=== PATIENT | female | born 1935 | race Caucasian/White ===

== ENCOUNTER 2017-03-29 15:13 | Outpatient (CLI) | payer MEDICARE, OTHER | END 2017-03-29 15:14 | disposition EMS.NT | LOC: EMS 15:13 | PROVIDERS: ATTEND Surgery | DX: S60.021A Contusion of right index finger without damage to nail, initial encounter (principal); S60.031A Contusion of right middle finger without damage to nail, initial encounter; W00.0XXA Fall on same level due to ice and snow, initial encounter; Y93.01 Activity, walking, marching and hiking; Y92.007 Garden or yard of unspecified non-institutional (private) residence as the place of occurrence of the external cause ==

== ENCOUNTER 2017-05-09 13:26 | Outpatient (CLI) | payer MEDICARE, OTHER ==
[2017-05-09 13:40] LABS: BASOPHILS % (AUTO) 0.5 %; EOSINOPHILS # (AUTO) 0.1 10^3/uL (0.0-0.7); EOSINOPHILS % (AUTO) 1.5 %; HCT - HEMATOCRIT 37.1 % (37.0-47.0); HGB - HEMOGLOBIN 12.6 g/dL (12.0-16.0); LYMPHOCYTES # (AUTO) 1.5 10^3/uL (1.5-3.5); LYMPHOCYTES % (AUTO) 19.6 %; MEAN CORPUSCULAR HEMOGLOBIN 29.5 pg (27.0-31.0); MEAN CORPUSCULAR HGB CONC 33.8 g/dL (32.0-36.0); MEAN CORPUSCULAR VOLUME 87.2 fL (81.0-99.0); MEAN PLATELET VOLUME 7.6 fL (7.9-10.8); MONOCYTES # (AUTO) 0.6 10^3/uL (0.0-1.0); MONOCYTES % (AUTO) 8.2 %; NEUTROPHILS # (AUTO) 5.5 10^3/uL (1.5-6.6); NEUTROPHILS % (AUTO) 70.2 %; RED BLOOD COUNT 4.25 10^6/uL (4.20-5.40); RED CELL DISTRIBUTION WIDTH 13.3 % (12.0-15.0); UNCORRECTED WHITE BLOOD COUNT 7.8 x10^3/uL; WHITE BLOOD COUNT 7.8 x10^3/uL (4.8-10.8)
[2017-05-09 13:54] LABS: BILIRUBIN,TOTAL 0.7 mg/dL (0.2-1.0); BUN - BLOOD UREA NITROGEN 9 mg/dL (6-20); CALCIUM 9.5 mg/dL (8.5-10.3); CARBON DIOXIDE - CO2 25 mmol/L (21-32); CHLORIDE 100 mmol/L (101-111); CREATININE 0.5 mg/dL (0.4-1.0); GFR - MDRD 118 (>89); GLUCOSE 111 mg/dL (70-100); POTASSIUM 3.7 mmol/L (3.5-5.0); SODIUM 135 mmol/L (135-145); TOTAL PROTEIN 7.2 g/dL (6.7-8.2)
[2017-05-09 13:54] LABS: BILIRUBIN,URINE NEGATIVE (NEGATIVE); PH,URINE 7.5 PH (5.0-7.5)
[2017-05-09] MEDS ORDERED: IOPAMIDOL-300 100 ML VIAL IVP ONE (18:35)
[2017-05-09] MEDS ORDERED: IOPAMIDOL-300 50 ML VIAL PO ONE (18:35)
--- NOTE | 2017-05-09 19:45 | CT Preliminary Report ---
Exam: CT Abdomen/Pelvis W/ IMPRESSION: 1. Slight interval increase in size of now 3.9 x 6.1 x 3.9 cm left renal neoplasm. No renal vein inva ken or regional lymphadenopathy. 2. Mild sigmoid colon diverticulitis. [facility] SITE ID: [id number]
--- NOTE | 2017-05-09 19:48 | CT Report ---
EXAM: CT ABDOMEN AND PELVIS EXAM DATE: 05/09/2017 06:27 PM. CLINICAL HISTORY: ABDOMIANL PAIN, RENAL CELL CANCER, ADENOCARCINOMA. COMPARISONS: None. TECHNIQUE: Routine helical CT imaging was performed through the abdomen and pelvis. IV contrast: 100 mL Isovue-300. Enteric contrast: No. Reconstructions: Coronal and sagittal. In accordance with CT protocol optimization, one or more of the following dose reduction techniques w ere utilized for this exam: automated exposure control, adjustment of mA and/or KV based on patient s ize, or use of iterative reconstructive technique. FINDINGS: Lung Bases: No significant findings at the lung bases. The heart is enlarged. Liver: No focal liver lesions. Gallbladder/Bile Ducts: The gallbladder has been removed. There is mild diffuse biliary dilatation wh ich is likely age and cholecystectomy related. Spleen: Borderline enlarged measuring 13 cm longitudinally. No focal splenic lesions. Pancreas: Calcification seen in the uncinate process likely sequela of previous pancreatitis. No evid ence of pancreatic mass or acute pancreatitis. Adrenal Glands: Normal. Kidneys: There is a 3.9 x 6.1 x 3.9 cm left renal mass containing internal septations and intermediat e density. This previously measured 6.2 x 3.5 x 3.6 cm. No renal vein invasion. No retroperitoneal ly mphadenopathy. The right kidney remains normal. Peritoneal Cavity/Bowel: There is eccentric mural thickening centered around a sigmoid colon divertic ulum. Pericolonic inflammatory stranding seen with no free air or fluid collections. Status post righ t hemicolectomy. There is no small bowel obstruction. Pelvic Organs: The uterus has been removed. No adnexal mass. The urinary bladder is unremarkable. Vasculature: No aneurysms or other significant abnormality. Bones: Thoracolumbar scoliosis and diffuse disk related degenerative changes. Other: None. IMPRESSION: 1. Slight interval increase in size of now 3.9 x 6.1 x 3.9 cm left renal neoplasm. No renal vein inva ken or regional lymphadenopathy. 2. Mild sigmoid colon diverticulitis. [facility] Referring Provider Line: [phone] SITE ID: [id number]
== END 2017-05-09 13:27 | disposition home or self-care (01) ==
LOC: LAB 13:26
PROVIDERS: ATTEND Family Medicine
DX: R10.9 Unspecified abdominal pain (principal); C64.9 Malignant neoplasm of unspecified kidney, except renal pelvis; C18.9 Malignant neoplasm of colon, unspecified
CPT/HCPCS: 36415; 74177; 80053; 81001; 85025; Q9967

== ENCOUNTER 2017-06-16 08:00 | Outpatient (CLI) | payer MEDICARE, OTHER | END 2017-06-16 08:01 | disposition home or self-care (01) | LOC: LAB.WCP 08:00 | PROVIDERS: ATTEND Family Medicine | DX: L98.9 Disorder of the skin and subcutaneous tissue, unspecified (principal) | CPT/HCPCS: 87070; 87205 ==

== ENCOUNTER 2017-06-17 11:23 | Emergency (ER) | payer MEDICARE, OTHER ==
--- NOTE | 2017-06-17 14:05 | ED Physician Documentation ---
PD HPI SKIN - Stated complaint Stated Complaint: FEMALE - Chief complaint Chief Complaint: Wound - History obtained from History obtained from: Patient - History of Present Illness Timing - onset: How many days ago (about a week of increasing redness and tenderness left buttock. Family has been cleaning it and using ointment. Patient without fever nor vomiting, general illness. But is having increased general weakness over baseline.) Timing - duration: Days Timing - details: Gradual onset Location: Other (left gluteal area) Quality / character: Painful, Discolored, Swelling, Other ( says there was some red blood with wiping the past few days.). No: Draining Associated symptoms: No: Fever, Myalgias, N/V/D Recently seen: Clinic (seen in clinic few days ago and treated with topical suggestions, then bigger redness and seen yesterday, with Rx of Keflex. Patient has been on it only less than a day.) Review of Systems Constitutional: denies: Fever, Chills GI: denies: Nausea, Vomiting, Diarrhea (but has had soft stools, once daily, without diarrhea per se. Irritated around rectum and red blood spots with wiping , none noted in stool itself.) PD PAST MEDICAL HISTORY - Past Medical History Cardiovascular: Hypertension Respiratory: None Neuro: None, CVA Endocrine/Autoimmune: None GI: 21 : Incontinence HEENT: None Psych: None Musculoskeletal: Scoliosis Derm: None, Other - Past Surgical History Past Surgical History: Yes General: Cholecystectomy, Appendectomy, Bowel surgery - Present Medications Home Medications: Ambulatory Orders Medication Instructions Recorded Confirmed Ascorbic Acid [Vitamin C] 60 mg PO DAILY 02/04/13 01/25/17 Atenolol 25 mg PO BID 02/04/13 01/25/17 Calcium Carb/Vitamin D3/Vit K1 1 each PO DAILY 02/04/13 01/25/17 [Calcium + Vit D & K Chew Tab] Simvastatin [Zocor] 40 mg PO DAILY 03/02/13 01/25/17 Clopidogrel [Plavix] 75 mg PO DAILY 01/15/14 01/25/17 Felodipine [Felodipine ER] 5 mg PO DAILY 01/15/14 01/25/17 Ferrous Sulfate [Iron] 325 mg PO DAILY 01/15/14 01/25/17 Glucosamine Sulfate 1,000 mg PO BID 01/15/14 01/25/17 Losartan [Cozaar] 100 mg PO DAILY 01/15/14 01/25/17 Multivitamin [Multivitamins] 1 cap PO DAILY 01/15/14 01/25/17 Cephalexin [Keflex] 500 mg PO 06/17/17 Mupirocin 1 applic TP TID #15 oint...g. 06/17/17 Ondansetron Odt [Zofran] 4 mg TL Q6H PRN #15 tablet 06/17/17 Sulfamethox/Trimeth 800/160 1 each PO BID #14 tablet 06/17/17 [Bactrim Ds 800/160] - Allergies Allergies/Adverse Reactions: Allergies Allergy/AdvReac Type Severity Reaction Status Date / Time levofloxacin [From Levaquin] Allergy unknown Verified 06/17/17 11:32 metoprolol tartrate * Allergy unknown Verified 06/17/17 11:32 [From Lopressor] benzonatate AdvReac Unknown Rash Verified 06/17/17 11:32 - Social History Does the pt smoke?: No Smoking Status: Never smoker Does the pt drink ETOH?: No Does the pt have substance abuse?: No - Immunizations Immunizations are current?: Yes PD ED PE NORMAL - Vitals Vital signs reviewed: Yes - General General: Alert and oriented X 3, No acute distress, Well developed/nourished, Other (getting around with walker ) - Cardiac Cardiac: RRR, No murmur - Respiratory Respiratory: Clear bilaterally - Abdomen Abdomen: Normal bowel sounds, Soft, Non tender - Rectal Rectal: Other (redness with irritation around rectum without hemorrhoids. Left gluteal area with firmness of tissue, redness and tenderness without fluctuance c/w cellulitis. SUperficial breakdown of skin at center of it. ) - Extremities Extremities: No tenderness to palpate, Normal ROM s pain, No edema, No calf tenderness / cord - Neuro Neuro: No motor deficit, No sensory deficit, Normal speech Results - Vitals Vitals: Vital Signs - 24 hr 06/17/17 06/17/17 06/17/17 11:29 14:54 15:36 Temperature 36.4 C L 36.8 C Heart Rate 78 70 73 Respiratory 17 16 18 Rate Blood Pressure 118/71 108/59 L 109/57 L O2 Saturation 96 97 100 Oxygen O2 Source Room air PD MEDICAL DECISION MAKING - ED course Complexity details: considered differential (bedside U/S showed cellulitis with inflammation but no abscess. No noted air in tissue. She is feeling weaker, per , but they feel they can still take care of her. She does not seem septic. I talked with them about OBS/hospital versus home due to the effect on her (weakness), and they opted for home right now. To return if fevers, vomiting , seems generally ill, etc. ), d/w patient, d/w family Departure - Departure Disposition: Home, Self Care Clinical Impression: Cellulitis of buttock, left Condition: Stable Record reviewed to determine appropriate education?: Yes Instructions: ED Infec Skin Cellulitis Follow-Up: Ronn Partida MD [Primary Care Provider] - Prescriptions: Sulfamethox/Trimeth 800/160 [Bactrim Ds 800/160] 1 each PO BID #14 tablet Mupirocin 1 applic TP TID #15 oint...g. Ondansetron Odt [Zofran] 4 mg TL Q6H PRN #15 tablet PRN Reason: Nausea / Vomiting Comments: There is no obvious abscess continue draining on ultrasound. There is inflammation in the area which along with the redness would denote to skin infection. I would use the cephalexin previously prescribed and add Bactrim twice daily. Cleanse the wound area twice daily with soap and water and apply antibiotic ointment mupirocin and then can cover with the skin protection such as a and D ointment. Tylenol if needed for pain. Ondansetron for nausea. Drink lots of fluids. Follow-up with your primary care in 3-4 days for recheck. Return sooner if feeling worse. Discharge Date/Time: 06/17/17 15:47
[2017-06-17] MEDS ORDERED: MUPIROCIN 2% OINT 1 GM TOP STA (15:23)
[2017-06-17] MEDS ORDERED: ONDANSETRON ODT 4 MG TABLET TL STA (15:23)
[2017-06-17] MEDS ORDERED: SULFAMETH/TRIMETH DS 800/160 MG TABLET PO STA (15:23)
[2017-06-17] MEDS ORDERED: ACETAMINOPHEN 325 MG TABLET PO STA (15:25)
[2017-06-17] MEDS ORDERED: MUPIROCIN 2% OINT 1 GM ONE (15:34)
[2017-06-17] MEDS ORDERED: ACETAMINOPHEN 325 MG TABLET PO ONE (15:34)
[2017-06-17] MEDS ORDERED: ONDANSETRON ODT 4 MG TABLET ONE (15:34)
[2017-06-17] MEDS ORDERED: SULFAMETH/TRIMETH DS 800/160 MG TABLET PO ONE (15:34)
[2017-06-17 15:39] VITALS: BP 109/57
== END 2017-06-17 15:47 | disposition home or self-care (01) ==
LOC: ED 11:23
DX: L03.317 Cellulitis of buttock (principal); I10 Essential (primary) hypertension; Z86.73 Personal history of transient ischemic attack (TIA), and cerebral infarction without residual deficits
CPT/HCPCS: 99283; 99284; A9270; Q0162

== ENCOUNTER 2018-01-16 09:30 | Outpatient (CLI) | payer MEDICARE, OTHER ==
[2018-01-16 13:27] LABS: CHOL/HDL RATIO 2.6 (<4.4); CHOLESTEROL 113 mg/dL; HDL CHOLESTEROL 43 mg/dL; LDL CHOLESTEROL,CALCULATED 40 mg/dL; LDL/HDL RATIO 0.9 (<4.4); VLDL CHOLESTEROL 30 mg/dL
[2018-01-16 13:55] LABS: HEMOGLOBIN A1C 0.42 g/dL; HEMOGLOBIN A1C % 4.9 % (4.6-6.2)
== END 2018-01-16 09:31 | disposition home or self-care (01) ==
LOC: LAB.N 09:30
PROVIDERS: ATTEND Family Medicine
DX: I10 Essential (primary) hypertension (principal); E87.1 Hypo-osmolality and hyponatremia; E74.39 Other disorders of intestinal carbohydrate absorption; C64.9 Malignant neoplasm of unspecified kidney, except renal pelvis; E78.5 Hyperlipidemia, unspecified; Z79.899 Other long term (current) drug therapy
CPT/HCPCS: 36415; 80061; 83036; 83721

== ENCOUNTER 2018-02-27 12:20 | Outpatient (CLI) | payer MEDICARE, OTHER ==
[2018-02-27 19:08] LABS: BASOPHILS # (AUTO) 0.1 10^3/uL (0.0-0.1); BASOPHILS % (AUTO) 0.7 %; EOSINOPHILS # (AUTO) 0.1 10^3/uL (0.0-0.7); EOSINOPHILS % (AUTO) 1.1 %; HGB - HEMOGLOBIN 14.3 g/dL (12.0-16.0); LYMPHOCYTES # (AUTO) 1.9 10^3/uL (1.5-3.5); LYMPHOCYTES % (AUTO) 25.4 %; MEAN CORPUSCULAR HEMOGLOBIN 29.7 pg (27.0-31.0); MEAN CORPUSCULAR HGB CONC 33.1 g/dL (32.0-36.0); MEAN CORPUSCULAR VOLUME 89.8 fL (81.0-99.0); MEAN PLATELET VOLUME 9.6 fL (7.9-10.8); MONOCYTES # (AUTO) 0.6 10^3/uL (0.0-1.0); MONOCYTES % (AUTO) 7.9 %; NEUTROPHILS # (AUTO) 4.8 10^3/uL (1.5-6.6); NEUTROPHILS % (AUTO) 64.9 %; PLT - PLATELET COUNT 222 10^3/uL (130-450); RED CELL DISTRIBUTION WIDTH 13.5 % (12.0-15.0); WHITE BLOOD COUNT 7.5 x10^3/uL (4.8-10.8)
[2018-02-27 19:26] LABS: ALBUMIN/GLOBULIN RATIO 1.3 (1.0-2.2); BILIRUBIN,TOTAL 0.6 mg/dL (0.2-1.0); CALCIUM 9.6 mg/dL (8.5-10.3); CREATININE 0.6 mg/dL (0.4-1.0); TOTAL PROTEIN 7.2 g/dL (6.7-8.2)
== END 2018-02-27 12:21 ==
LOC: LAB.WCP 12:20
PROVIDERS: ATTEND Family Medicine
DX: K62.5 Hemorrhage of anus and rectum (principal)
CPT/HCPCS: 36415; 80053; 85025

== ENCOUNTER 2018-04-05 08:00 | Outpatient (CLI) | payer MEDICARE, OTHER ==
[2018-04-05 18:43] LABS: BASOPHILS % (AUTO) 0.6 %; EOSINOPHILS # (AUTO) 0.1 10^3/uL (0.0-0.7); EOSINOPHILS % (AUTO) 1.1 %; HGB - HEMOGLOBIN 12.7 g/dL (12.0-16.0); LYMPHOCYTES % (AUTO) 18.6 %; MEAN CORPUSCULAR HEMOGLOBIN 30.8 pg (27.0-31.0); MEAN CORPUSCULAR HGB CONC 33.6 g/dL (32.0-36.0); MEAN CORPUSCULAR VOLUME 91.8 fL (81.0-99.0); MEAN PLATELET VOLUME 9.4 fL (7.9-10.8); MONOCYTES # (AUTO) 0.5 10^3/uL (0.0-1.0); MONOCYTES % (AUTO) 9.3 %; NEUTROPHILS # (AUTO) 3.9 10^3/uL (1.5-6.6); NEUTROPHILS % (AUTO) 70.4 %; PLT - PLATELET COUNT 205 10^3/uL (130-450); RED BLOOD COUNT 4.11 10^6/uL (4.20-5.40); RED CELL DISTRIBUTION WIDTH 14.2 % (12.0-15.0); WHITE BLOOD COUNT 5.6 x10^3/uL (4.8-10.8)
[2018-04-05 19:11] LABS: ALBUMIN 3.5 g/dL (3.2-5.5); ALBUMIN/GLOBULIN RATIO 1.1 (1.0-2.2); BILIRUBIN,TOTAL 0.6 mg/dL (0.2-1.0); CALCIUM 9.1 mg/dL (8.5-10.3); CREATININE 0.4 mg/dL (0.4-1.0); MAGNESIUM 1.9 mg/dL (1.7-2.8); PHOSPHORUS 3.4 mg/dL (2.5-4.6); TOTAL PROTEIN 6.7 g/dL (6.7-8.2)
== END 2018-04-05 08:01 ==
LOC: LAB.WCP 08:00
PROVIDERS: ATTEND Physician Assistant Medical
DX: I48.91 Unspecified atrial fibrillation (principal)
CPT/HCPCS: 36415; 80053; 83735; 84100; 84443; 85025

== ENCOUNTER 2018-04-16 07:54 | Outpatient (CLI) | payer MEDICARE, OTHER | END 2018-04-16 07:55 | disposition home or self-care (01) | LOC: DI 07:54 | PROVIDERS: ATTEND Physician Assistant Medical | DX: I48.0 Paroxysmal atrial fibrillation (principal); I51.9 Heart disease, unspecified; I08.1 Rheumatic disorders of both mitral and tricuspid valves | CPT/HCPCS: 93306 ==

== ENCOUNTER 2018-05-15 14:50 | Outpatient (CLI) | payer MEDICARE, OTHER ==
[2018-05-15 18:57] LABS: BASOPHILS % (AUTO) 0.6 %; EOSINOPHILS # (AUTO) 0.1 10^3/uL (0.0-0.7); EOSINOPHILS % (AUTO) 1.8 %; HGB - HEMOGLOBIN 13.5 g/dL (12.0-16.0); LYMPHOCYTES # (AUTO) 1.4 10^3/uL (1.5-3.5); LYMPHOCYTES % (AUTO) 21.6 %; MEAN CORPUSCULAR HGB CONC 33.5 g/dL (32.0-36.0); MEAN CORPUSCULAR VOLUME 89.8 fL (81.0-99.0); MEAN PLATELET VOLUME 9.3 fL (7.9-10.8); MONOCYTES # (AUTO) 0.6 10^3/uL (0.0-1.0); MONOCYTES % (AUTO) 8.4 %; NEUTROPHILS # (AUTO) 4.5 10^3/uL (1.5-6.6); NEUTROPHILS % (AUTO) 67.6 %; PLT - PLATELET COUNT 227 10^3/uL (130-450); RED BLOOD COUNT 4.48 10^6/uL (4.20-5.40); RED CELL DISTRIBUTION WIDTH 14.8 % (12.0-15.0); WHITE BLOOD COUNT 6.7 x10^3/uL (4.8-10.8)
[2018-05-15 19:13] LABS: ALBUMIN 3.9 g/dL (3.2-5.5); ALBUMIN/GLOBULIN RATIO 1.1 (1.0-2.2); BILIRUBIN,TOTAL 0.8 mg/dL (0.2-1.0); CALCIUM 9.6 mg/dL (8.5-10.3); CREATININE 0.7 mg/dL (0.4-1.0); TOTAL PROTEIN 7.4 g/dL (6.7-8.2)
== END 2018-05-15 14:51 | disposition home or self-care (01) ==
LOC: LAB.WCP 14:50
PROVIDERS: ATTEND Family Medicine
DX: I48.0 Paroxysmal atrial fibrillation (principal); K62.5 Hemorrhage of anus and rectum; I10 Essential (primary) hypertension; C18.9 Malignant neoplasm of colon, unspecified
CPT/HCPCS: 36415; 80053; 82378; 82728; 83540; 84466; 85025

== ENCOUNTER 2018-06-10 08:24 | Outpatient (CLI) | payer MEDICARE, OTHER | END 2018-06-10 08:25 | disposition critical access hospital (66) | LOC: EMS 08:24 | PROVIDERS: ATTEND Surgery | DX: R46.4 Slowness and poor responsiveness (principal) | CPT/HCPCS: A0425; A0429 ==

== ENCOUNTER 2018-06-10 08:58 | Inpatient (IN) | payer MEDICARE, OTHER ==
--- NOTE | 2018-06-10 09:19 | ED Physician Documentation ---
PD HPI ALTERED MENTAL STATUS - Stated complaint Stated Complaint: CONFUSED - Chief complaint Chief Complaint: Neuro - History obtained from History obtained from: Patient, Family, EMS - History of Present Illness Timing - onset: Today Timing - duration: Hours Timing - details: Abrupt onset, Now resolved Quality / character: Confused, Disoriented, Agitated Associated symptoms: Cough, General weakness Contributing factors: Recent illness. No: Anticoagulated Basline status: Alert and oriented X 3, Walker Similar symptoms before: Diagnosis (CVA) Recently seen: Clinic - Additional information Additional information: 83-year-old female survivor of colon cancer has a recent history of atrial fibrillation and she is being evaluated for anticoagulation and is awaiting results of her colo-guard before anticoagulation is started. This morning her family found her on the commode confused and unable to get up. She was confused enough that they called 911. By the time medics arrived the patient's confusion had cleared. She remains slow to respond consistent with her baseline. She is oriented to place time and person. She has had a prior CVA that has left her with some right-sided weakness. She uses a walker to ambulate and she requires assistance to get out of bed. Review of Systems Constitutional: reports: Fatigue. denies: Fever Eyes: denies: Decreased vision Ears: reports: Loss of hearing. denies: Ear pain Nose: reports: Congestion. denies: Rhinorrhea / runny nose Throat: reports: Sore throat Cardiac: reports: Palpitations. denies: Chest pain / pressure Respiratory: reports: Dyspnea, Cough GI: reports: Nausea. denies: Abdominal Pain, Vomiting, Constipation, Diarrhea : denies: Dysuria, Frequency Skin: denies: Rash Musculoskeletal: denies: Neck pain, Back pain, Extremity pain Neurologic: reports: Generalized weakness, Confused, Altered mental status. denies: Focal weakness, Numbness, Head injury PD PAST MEDICAL HISTORY - Past Medical History Cardiovascular: Hypertension Respiratory: None Neuro: CVA Endocrine/Autoimmune: None GI: 21 : Incontinence HEENT: None Psych: None Musculoskeletal: Scoliosis Derm: None, Other - Past Surgical History Past Surgical History: Yes General: Cholecystectomy, Appendectomy, Bowel surgery - Present Medications Home Medications: Ambulatory Orders Medication Instructions Recorded Confirmed Calcium Carb/Vitamin D3/Vit K1 1 each PO DAILY 02/04/13 06/10/18 [Calcium + Vit D & K Chew Tab] Simvastatin [Zocor] 40 mg PO DAILY 03/02/13 06/10/18 Ferrous Sulfate [Iron] 325 mg PO DAILY 01/15/14 06/10/18 Glucosamine Sulfate 1,000 mg PO DAILY 01/15/14 06/10/18 Losartan [Cozaar] 100 mg PO DAILY 01/15/14 06/10/18 Multivitamin [Multivitamins] 1 cap PO DAILY 01/15/14 06/10/18 Lysine HCl 500 mg PO DAILY 01/26/18 06/10/18 Ascorbic Acid 500 mg PO DAILY 06/10/18 06/10/18 Diltiazem HCl [Diltiazem ER] 120 mg PO DAILY 06/10/18 06/10/18 Metoprolol Tartrate [Lopressor] 50 mg PO BID 06/10/18 06/10/18 - Allergies Allergies/Adverse Reactions: Allergies Allergy/AdvReac Type Severity Reaction Status Date / Time celecoxib [From Celebrex] Allergy Unknown Verified 06/10/18 09:05 levofloxacin [From Levaquin] Allergy unknown Verified 06/17/17 11:32 metoprolol tartrate * Allergy unknown Verified 06/17/17 11:32 [From Lopressor] benzonatate AdvReac Unknown Rash Verified 06/17/17 11:32 - Social History Does the pt smoke?: No Smoking Status: Never smoker Does the pt drink ETOH?: No Does the pt have substance abuse?: No - Immunizations Immunizations are current?: Yes PD ED PE NORMAL - Vitals Vital signs reviewed: Yes (tachy and hypertensive ) - General General: Alert and oriented X 3, No acute distress, Well developed/nourished, Other (The patient has delay in execution of motor commands but does answer appropriately ) - HEENT HEENT: Atraumatic, PERRL, EOMI - Neck Neck: Supple, no meningeal sign, No bony TTP - Cardiac Cardiac: Other (regular tachycardic rate) - Respiratory Respiratory: No respiratory distress, Other (rhonchi in the right mid lungfield. 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, No motor deficit, No sensory deficit, Other (There is some speech latentcy present) Eye Opening: Spontaneous Motor: Obeys Commands Verbal: Oriented GCS Score: 15 - Psych Psych: Normal mood, Normal affect Results - Vitals Vitals: Vital Signs - 24 hr 06/10/18 06/10/18 06/10/18 08:59 09:54 10:03 Temperature 36.5 C Heart Rate 130 H 130 H 116 H Respiratory 20 20 25 H Rate Blood Pressure 148/101 H 133/113 H 118/80 O2 Saturation 92 93 92 06/10/18 10:10 Temperature Heart Rate 100 Respiratory 30 H Rate Blood Pressure 126/88 H O2 Saturation 92 Oxygen O2 Source Room air - EKG (time done) 1001 Rate: Rate (enter#) (113) Rhythm: Atrial fibrillation Compare to prior EKG: Changed from prior EKG (SPT 613 the rate has increased and the rhythm has changed to afib. ) Computer interpretation: Agree with computer - Labs Labs: Laboratory Tests 06/10/18 06/10/18 06/10/18 09:10 09:10 09:10 WBC 6.8 RBC 4.28 Hgb 12.9 Hct 37.5 MCV 87.5 MCH 30.1 MCHC 34.4 RDW 14.9 Plt Count 188 MPV 9.2 Neut # (Auto) 5.1 Lymph # (Auto) 1.0 L [place] # (Auto) 0.5 Eos # (Auto) 0.1 Baso # (Auto) 0.0 Absolute Nucleated RBC 0.00 Nucleated RBC % 0.0 Sodium 137 Potassium 3.6 Chloride 104 Carbon Dioxide 24 Anion Gap 9.0 BUN 12 Creatinine 0.6 Estimated GFR (MDRD) 96 Glucose 118 H Lactic Acid Calcium 8.9 Total Bilirubin 1.2 H AST 30 ALT 19 Alkaline Phosphatase 62 Troponin I < 0.04 B-Natriuretic Peptide Total Protein 7.2 Albumin 3.8 Globulin 3.4 Albumin/Globulin Ratio 1.1 Lipase 28 TSH Urine Color Urine Clarity Urine pH Ur Specific [place] Urine Protein Urine Glucose (UA) Urine Ketones Urine Occult Blood Urine Nitrite Urine Bilirubin Urine Urobilinogen Ur Leukocyte Esterase Urine RBC Urine WBC Ur Squamous Epith Cells Urine Bacteria Ur Microscopic Review Urine Culture Comments 06/10/18 06/10/18 06/10/18 09:28 09:28 09:28 WBC RBC Hgb Hct MCV MCH MCHC RDW Plt Count MPV Neut # (Auto) Lymph # (Auto) [place] # (Auto) Eos # (Auto) Baso # (Auto) Absolute Nucleated RBC Nucleated RBC % Sodium Potassium Chloride Carbon Dioxide Anion Gap BUN Creatinine Estimated GFR (MDRD) Glucose Lactic Acid 1.0 Calcium Total Bilirubin AST ALT Alkaline Phosphatase Troponin I B-Natriuretic Peptide 791 H Total Protein Albumin Globulin Albumin/Globulin Ratio Lipase TSH 3.50 Urine Color Urine Clarity Urine pH Ur Specific [place] Urine Protein Urine Glucose (UA) Urine Ketones Urine Occult Blood Urine Nitrite Urine Bilirubin Urine Urobilinogen Ur Leukocyte Esterase Urine RBC Urine WBC Ur Squamous Epith Cells Urine Bacteria Ur Microscopic Review Urine Culture Comments 06/10/18 10:05 WBC RBC Hgb Hct MCV MCH MCHC RDW Plt Count MPV Neut # (Auto) Lymph # (Auto) [place] # (Auto) Eos # (Auto) Baso # (Auto) Absolute Nucleated RBC Nucleated RBC % Sodium Potassium Chloride Carbon Dioxide Anion Gap BUN Creatinine Estimated GFR (MDRD) Glucose Lactic Acid Calcium Total Bilirubin AST ALT Alkaline Phosphatase Troponin I B-Natriuretic Peptide Total Protein Albumin Globulin Albumin/Globulin Ratio Lipase TSH Urine Color YELLOW Urine Clarity CLEAR Urine pH 6.0 Ur Specific [place] 1.015 Urine Protein TRACE Urine Glucose (UA) NEGATIVE Urine Ketones NEGATIVE Urine Occult Blood NEGATIVE Urine Nitrite POSITIVE H Urine Bilirubin NEGATIVE Urine Urobilinogen 0.2 (NORMAL) Ur Leukocyte Esterase SMALL H Urine RBC 0-5 Urine WBC 11-25 H Ur Squamous Epith Cells NONE SEEN Urine Bacteria Many H Ur Microscopic Review INDICATED Urine Culture Comments INDICATED - Rads (name of study) 2 view chest Radiology: Prelim report reviewed (Impression: 1. Right middle lobe consolidation consistent with pneumonia. New small right pleural effusion.), EMP read indepedently, See rad report CT head without Radiology: Prelim report reviewed, EMP read indepedently, See rad report Procedures - IVC sono (time) [id number] Bedside IVC sono: IVC measures (cm) (2.34), IVC collapsed c insp (cm) (2.34), Collapsibility index (0), High CVP PD MEDICAL DECISION MAKING - ED course Complexity details: reviewed old records, reviewed results, re-evaluated patient , considered differential, d/w patient, d/w family ED course: 83 y/o female with a recent diagnosis of afib has developed transient confusion and appears at her baseline on arrival to the ED according to the family. She is found to be in afib with RVR and has rhonchi on exam and a plethoric IVC consistent with failure related to the rapid rate and she is administered diltiazem 20mg IVP. Diltiazem helps with a rate and the patient is diagnosed with right lower lobe pneumonia. - Sepsis Event Vital Signs: Vital Signs - 24 hr 06/10/18 06/10/18 06/10/18 08:59 09:54 10:03 Temperature 36.5 C Heart Rate 130 H 130 H 116 H Respiratory 20 20 25 H Rate Blood Pressure 148/101 H 133/113 H 118/80 O2 Saturation 92 93 92 06/10/18 10:10 Temperature Heart Rate 100 Respiratory 30 H Rate Blood Pressure 126/88 H O2 Saturation 92 Oxygen O2 Source Room air Departure - Departure Disposition: [facility] DC/Xfer Clinical Impression: Atrial fibrillation with RVR Pneumonia Qualifiers: Pneumonia type: due to unspecified organism Laterality: right Lung location: lower lobe of lung Qualified Code(s): J18.1 - Lobar pneumonia, unspecified organism Altered mental status Qualifiers: Altered mental status type: disorientation Qualified Code(s): R41.0 - Disorientation, unspecified Urinary tract infection Qualifiers: Urinary tract infection type: acute cystitis Hematuria presence: without hematuria Qualified Code(s): N30.00 - Acute cystitis without hematuria Discharge Date/Time: 06/10/18 12:33
[2018-06-10] MEDS ORDERED: diltiaZEM INJ 5 MG/ML VIAL IVP STA (09:31)
[2018-06-10 09:39] LABS: BASOPHILS % (AUTO) 0.6 %; EOSINOPHILS # (AUTO) 0.1 10^3/uL (0.0-0.7); EOSINOPHILS % (AUTO) 1.4 %; HGB - HEMOGLOBIN 12.9 g/dL (12.0-16.0); LYMPHOCYTES % (AUTO) 14.5 %; MEAN CORPUSCULAR HEMOGLOBIN 30.1 pg (27.0-31.0); MEAN CORPUSCULAR HGB CONC 34.4 g/dL (32.0-36.0); MEAN CORPUSCULAR VOLUME 87.5 fL (81.0-99.0); MEAN PLATELET VOLUME 9.2 fL (7.9-10.8); MONOCYTES # (AUTO) 0.5 10^3/uL (0.0-1.0); MONOCYTES % (AUTO) 7.9 %; NEUTROPHILS # (AUTO) 5.1 10^3/uL (1.5-6.6); NEUTROPHILS % (AUTO) 75.6 %; PLT - PLATELET COUNT 188 10^3/uL (130-450); RED BLOOD COUNT 4.28 10^6/uL (4.20-5.40); RED CELL DISTRIBUTION WIDTH 14.9 % (12.0-15.0); WHITE BLOOD COUNT 6.8 x10^3/uL (4.8-10.8)
[2018-06-10 09:53] LABS: ALBUMIN 3.8 g/dL (3.2-5.5); ALBUMIN/GLOBULIN RATIO 1.1 (1.0-2.2); BILIRUBIN,TOTAL 1.2 mg/dL (0.2-1.0); CALCIUM 8.9 mg/dL (8.5-10.3); CREATININE 0.6 mg/dL (0.4-1.0); TOTAL PROTEIN 7.2 g/dL (6.7-8.2)
--- NOTE | 2018-06-10 10:16 | CT Report ---
Reason: afib-confusion and weakness Procedure Date: 06/10/2018 Accession Number: [id number] / [id number] Procedure: CT - Head W/O CPT Code: FULL RESULT: EXAM: CT HEAD EXAM DATE: 06/10/2018 09:56 AM. CLINICAL HISTORY: Afib-confusion and weakness. COMPARISON: None. TECHNIQUE: Multiaxial CT images were obtained from the foramen magnum to the vertex. Reformats: Sagittal and coronal. IV contrast: None. In accordance with CT protocol optimization, one or more of the following dose reduction techniques were utilized for this exam: automated exposure control, adjustment of mA and/or KV based on patient size, or use of iterative reconstructive technique. FINDINGS: Parenchyma: No intraparenchymal hemorrhage. No evidence of mass, midline shift, or CT findings of acute infarction. Deep white matter hypodensities, consistent with chronic microvascular ischemic disease and old infarcts seen on MRI 02/05/2013. Extraaxial Spaces: Normal for age. No subdural or epidural collections identified. Ventricles: Normal in size and position. Sinuses and Orbits: Imaged paranasal sinuses, orbits, and mastoids show no significant abnormality. Bones: No evidence of fracture or calvarial defect. Other: None. IMPRESSION: No CT evidence for acute intracranial injury. [facility]
[2018-06-10 10:19] LABS: BILIRUBIN,URINE NEGATIVE (NEGATIVE); GLUCOSE, URINE (UA) NEGATIVE (NEGATIVE); KETONES,URINE (UA) NEGATIVE (NEGATIVE); LEUKOCYTE ESTERASE, URINE SMALL (NEGATIVE); NITRITE,URINE POSITIVE (NEGATIVE); OCCULT BLOOD,URINE NEGATIVE (NEGATIVE); PROTEIN,URINE TRACE mg/dL (NEGATIVE); UROBILINOGEN,URINE 0.2 (NORMAL) E.U./dL (NORMAL)
[2018-06-10 10:23] LABS: CLARITY,URINE CLEAR (CLEAR)
[2018-06-10 10:32] LABS: RBC,URINE 0-5 /HPF (0-5); SQUAMOUS EPITHELIAL CELL,UR NONE SEEN (<= Few)
[2018-06-10 10:33] LABS: BACTERIA,URINE Many /HPF (None Seen)
--- NOTE | 2018-06-10 11:05 | XRAY Report ---
Reason: increased cough Procedure Date: 06/10/2018 Accession Number: [id number] / [id number] Procedure: XR - Chest 2 View X-Ray CPT Code: 18873 FULL RESULT: EXAM: CHEST RADIOGRAPHY EXAM DATE: 06/10/2018 09:27 AM. CLINICAL HISTORY: Increased cough. COMPARISON: CHEST 2 VIEW PA/LAT 08/02/2017 10:04 AM. TECHNIQUE: 2 views. FINDINGS: The heart is enlarged. Ectatic thoracic aorta. New dense abnormal opacities in the right mid and lower lung with new right costophrenic angle blunting. Majority of airspace opacities appear located within the right middle lobe. IMPRESSION: 1. Right middle lobe consolidation consistent with pneumonia. 2. New small right pleural effusion. [facility]
[2018-06-10] MEDS ORDERED: cefTRIAXone 1 GM in SODIUM CHLORIDE 0.9% MINIBAG 100 ML IV STA (11:20)
[2018-06-10] MEDS ORDERED: HYDROcod/ACETAM 5/325 MG TABLET PO PRN (11:45)
[2018-06-10] MEDS ORDERED: ONDANSETRON 4 MG/2 ML VIAL IVP PRN (11:45)
[2018-06-10] MEDS ORDERED: ONDANSETRON ODT 4 MG TABLET TL PRN (11:45)
[2018-06-10] MEDS ORDERED: ACETAMINOPHEN 325 MG TABLET PO PRN (11:45)
[2018-06-10] MEDS ORDERED: SODIUM CHLORIDE FLUSH 0.9% 10 ML SYRINGE IVP PRN (11:45)
[2018-06-10] MEDS: diltiaZEM CD 120 MG CAPSULE PO SCH (13:04)
[2018-06-10] MEDS: METOPROLOL TARTRATE 50 MG TABLET PO SCH ×2 (13:04→20:21)
[2018-06-10] MEDS: SODIUM CHLORIDE 0.9% 1,000 ML IV SCH ×2 (13:08→23:56)
[2018-06-10] MEDS: AZITHROMYCIN INJ 500 MG in SODIUM CHLORIDE 0.9% 250 ML IV SCH (13:09)
[2018-06-10] MEDS: SODIUM CHLORIDE FLUSH 0.9% 10 ML SYRINGE IVP SCH (16:36)
--- NOTE | 2018-06-10 16:55 | CT Report ---
Reason: abnormal cxr with hypoxia Procedure Date: 06/10/2018 Accession Number: [id number] / [id number] Procedure: CT - Chest W/O CPT Code: FULL RESULT: EXAM: CT CHEST EXAM DATE: 06/10/2018 12:03 PM. CLINICAL HISTORY: Abnormal cxr with hypoxia. COMPARISONS: 06/10/2018. TECHNIQUE: Routine helical CT imaging was performed through the chest. IV contrast: None. Reconstructions: Coronal and sagittal. In accordance with CT protocol optimization, one or more of the following dose reduction techniques were utilized for this exam: automated exposure control, adjustment of mA and/or KV based on patient size, or use of iterative reconstructive technique. FINDINGS: Lungs/Pleura: Small bilateral pleural effusions. Right hemithorax volume loss. There is atelectasis in the right middle and right lower lobes. Superimposed pneumonia in the right lower lobe is difficult to exclude. There is asymmetric narrowing of the right mainstem, upper lobe, middle lobe and lower lobe bronchi. Dependent left lower lobe opacities are likely atelectasis. 8 mm subpleural nodule in the left lower lobe. Elevated right hemidiaphragm. No pneumothorax. Mediastinum: The heart is enlarged. There is a moderate pericardial effusion by CT. Aortic atherosclerosis. Ectatic ascending aorta without aneurysm. Dense object in the distal esophagus is likely an ingested pill. Bones: Mild scoliosis. Visualized Abdomen: Unremarkable. Other: Partially imaged hyperattenuating left renal lesion. IMPRESSION: 1. Cardiomegaly. Moderate pericardial effusion by CT, although this would be better assessed with echocardiogram. 2. Asymmetric narrowing of the right mainstem bronchus and right upper, middle and lower lobe bronchi is of uncertain etiology and could reflect bronchomalacia. Right middle and lower lobe atelectasis with right hemithorax volume loss. Superimposed pneumonia in the right lower lobe is difficult to exclude. 3. Small bilateral pleural effusions [facility]
[2018-06-10] MEDS: FUROSEMIDE 20 MG/2 ML VIAL IVP SCH (20:20)
[2018-06-10] MEDS ORDERED: MIN OIL/DIMETHICON/COCONUT OIL 92 GM TUBE TOP ONE (23:30)
[2018-06-10] MEDS ORDERED: MIN OIL/DIMETHICON/COCONUT OIL 92 GM TUBE TOP PRN (23:33)
--- NOTE | 2018-06-11 03:48 | HISTORY & PHYSICAL EXAMINATION ---
DATE OF SERVICE: 06/10/2018 Physician: Lola Salgado MD PRIMARY CARE PROVIDER: Wilfrid Partida M.D. ADMITTING PROVIDER: Lola Salgado M.D. CHIEF COMPLAINT: Acute confusional state. HISTORY OF PRESENT ILLNESS: This patient is an 83-year-old female who lives with her . Daughter moved in with her over 30 years ago when daughter had financial difficulty, trying to raise a single child on her own, and daughter has been living with this patient for those 30 years. The patient is wheelchair bound. Very sedentary. 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 With rehab, she was pretty satisfied with how independent she remained. Unfortunately, she had a right hemicolectomy in 1978 for colon cancer. She had recurrence in the left transverse bowel on colonoscopy in 2004. She had a partial colectomy in July 2005. No chemotherapy. She also has a renal cell cancer, biopsy-proven, in approximately 2007. She is followed conservatively by serial CAT scans. She is not felt to be a candidate for surgical resection because of her comorbidities. She was last seen in December 2017 by her oncologist. Her CEA level was 1.3 on February 10, then 3.1. Most recently, on May 15, it was 5.3. A new recent issue is that of persistent atrial fibrillation. She was seen in her primary care provider's office for routine followup, found to have tachycardia and an EKG confirmed fibrillation. She was treated in the outpatient setting with rate lowering drugs in the form of atenolol and diltiazem. An echocardiogram done on April 18 was compared to a January 2013 echo. The January 2013 echo showed mild concentric left ventricular hypertrophy, global hypokinesis, an ejection fraction of 40%. Right ventricular systolic pressures were 22 then. With the April 18, 2018, echo she had an ejection fraction of 40% to 45%, the same mild concentric left ventricular hypertrophy. What was new was severe left and right atrial enlargement. She has mild to moderate mitral regurgitation, moderate tricuspid regurgitation and her right ventricular systolic pressures are now 62. She has seen 2 specialists in the last month regarding her atrial fibrillation issue and colon cancer issue. She needs to be anticoagulated for the atrial fibrillation, but it was not clear if she could be safely anticoagulated because of her colon cancer history and previous history of hemorrhoids. She has had bright red per rectum as recently as January 2018. She saw Dr. Hooks. She is very reluctant to do a colonoscopy. As such, he is going to do a Cologuard test on her. If the Cologuard test is positive, she will need to proceed to a colonoscopy. If the Cologuard test is negative, she will not need the colonoscopy. In the meantime, Cardiology is waiting for evaluation of her bowel because they do not want to anticoagulate her until they know she can be safely anticoagulated with her bowel history. In my examining and seeing the patient, her granddaughter is with her right now. Her has left and will be returning. The patient's daughter, who lives with her, is not with us. Granddaughter is very alarmed at the change in her grandmother. She feels that her grandmother is steadily losing ground over the last 2 months and her family is in denial. The granddaughter has brought up concerns that she is seeing grandma get more and more short of breath, weaker and weaker, and less mobile. She is watching her eat less and pick at her food. She feels that her mom, the patient's daughter, is also not doing well, stressed out, and probably should not be taking care of her grandma. She gives examples where her mom will be caught up in her own activities and chores for the day, and will leave the patient sitting. No food or water is offered, and the patient is not asked to get up to go to the bathroom on a regular basis. Every time the granddaughter has brought up that maybe grandma needs to have in-home support more than her mom and grandfather can provide, the family shuts it down. The patient herself is very pleasant. She says that she has had a chronic cough for over a year, no one can tell her why. She was seen for a right lung pneumonia in July 2017, documented on chest x-ray and treated in the outpatient setting. She denies fever, chills, sweats. She does know that she is just getting weaker and more tired, but cannot explain why. She also cannot explain why she is belly breathing and using her accessory muscles of respiration. She states that she is not short of breath and does not know why we think she should is. There is no hemoptysis. She denies abdominal pain. She denies blood in her urine and cannot remember the January 2018 bright red blood per rectum episode. This morning, her family found her on the commode. She could not get up off the commode and she was confused. The granddaughter confirms that she is still confused right now. For instance, she asked a question about the granddaughter' s school classes. Granddaughter has not been in school for a long time and owns her own bar, and grandma knows that. By the time the medics arrived, the patient's confusion has cleared. She is slow to respond, consistent with her baseline. She is oriented to person, place and time. In her evaluation, she is afebrile, normotensive, mildly hypoxic at 92% on room air. She is usually 97% to 100% on room air. Her white cell count is normal. Physical exam is unremarkable, other than the baseline status of this elderly woman who has had the consequences of a right body stroke, but her chest x-ray shows a right middle lobe consolidation consistent with pneumonia and a new small right pleural effusion, when it is compared to the August 2017 chest x- ray. Head CT was done and, other than age, there is no evidence of acute intracranial abnormality. Dr. Sanchez would now like the patient admitted for pneumonia. PAST MEDICAL HISTORY 1. Colon cancer. Right hemicolectomy in 1978. Recurrence diagnosed on colonoscopy in 2004. Left transverse bowel. She was resected and has not had chemotherapy. It was a partial colectomy and 1/8 nodes were positive. Last seen by Oncology in December 2017. Last colonoscopy was July 2006. CEA is rising. She was 1.3 in the past and it has risen now to 5.3 on May 15. 2. In the evaluations for colon cancer and followup, she was identified as having a renal mass. In approximately 2004, she had a biopsy proven renal cell carcinoma. She is followed by CAT scans, again last seen by Oncology in December 2017. 3. Hypertension. 4. Right body stroke with left middle cerebral artery thrombosis in January 2013. 5. Hyperlipidemia. 6. Hypertension. 7. Scoliosis. 8. Chronic systolic congestive heart failure. Ejection fraction was 40% in January 2013. The echo was done in association with her stroke. Most recent echo shows ejection fraction of 40% to 45%. What is worsening is atrial enlargement , tricuspid and mitral regurgitation. Right ventricular systolic pressures are also rising. 9. Persistent atrial fibrillation. Currently on rate lowering agent. With her visit to Dr. Islas on June 07, she is on metoprolol and diltiazem now. She has a chronic left bundle branch block on EKG. 10. Incisional hernia repair with mesh in May 2006. 11. She is G8, P8. PAST SURGICAL HISTORY 1. Total abdominal hysterectomy in 1982. 2. Cholecystectomy in 1969 with incidental appendectomy in 1969. ALLERGIES SHE IS ALLERGIC TO: 1. CELEBREX. 2. LEVAQUIN. 3. LOPRESSOR. 4. BENZONATATE. Although Lopressor is an allergy listed, she is on Lopressor per the sports psychologist, and is currently actively taking it. MEDICATIONS 1. Ascorbic acid 500 mg daily. 2. Calcium with vitamin D daily. 3. Ferrous sulfate 325 mg daily. 4. Multivitamin daily. 5. Glucosamine chondroitin capsule daily. 6. Losartan 100 mg daily. 7. Lopressor 50 mg p.o. b.i.d. 8. Zocor 40 mg p.o. daily. SOCIAL HISTORY: She was born outside of [place], [place]. her when she was 19 years old, and he then went into the [employer]. She [place] lived [place] her 's deployment. Her most favorite place to live was [place]. She gave him 8 children, one who is because of a stroke. She never smoked. She never drank. 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 Over 30 years ago, her daughter moved in with her when she became with her only child , could not make ends meet, and moved in with mom and dad. The patient has no history of recreational substance abuse. FAMILY HISTORY 1. Dad at age 60 of complications of CHF, COPD, stroke, and a heart attack. 2. Mom at 89 with hypertension, chronic kidney disease, coronary artery disease. 3. Three siblings. Two are . One brother had multiple myeloma and another had brain aneurysm, and her sister is alive but has had a brain aneurysm. 4. Of her 8 children, 1 son has diabetes, one child of a stroke. REVIEW OF SYSTEMS Difficult to obtain. This donovan, donovan lady wants to mitigate complaints and does not really want to share any problems. I cannot tell if it is because she is afraid we may do workup, or she is so private she does want to tell us things. GENERAL: She denies fevers, chills, unexpected weight changes. In looking at the EMR for her office, her weight is in the 162-165 range in 2011 and 2012. The most she had ever weighed is 180, in January 2008. Her most recent weight in their office is 167 pounds. ENT: She has cataracts. She just does not want to get them treated. She wears glasses. She has chronic right facial droop. Occasional problems with her speech, occasional problems with swallowing. PULMONARY: Chronic cough for over a year. It is nonproductive, getting worse. No hemoptysis. No sweats. No feeling of chest congestion. CARDIAC: Does not seem to be self-aware about palpitations. She prefers to sit up in a chair and never lie down flat, but cannot tell me why. She does not tell me that she is short of breath lying down flat, she just tells me that she feels more comfortable sitting upright. Legs are intermittently swollen and have been getting more swollen over the last few weeks. GASTROINTESTINAL: Denies abdominal pain. No change in bowel habits. No blood in her stool. It is denied, even though an office note from January 2013 documents bright red blood per rectum. She does not remember that. GENITOURINARY: Chronic urinary incontinence. Denies urgency, frequency, dysuria, flank pain or hematuria. JOINTS: "I hurt as much as anybody my age should hurt." No new effusions. No heat. No falls. SKIN: Denies lesions, body rashes, moles that are worrisome. PSYCHIATRIC: Denies depression, hallucinations. NEUROLOGIC: She has a chronic right hemiplegia, residual. Chronic problems with speech and voice. Sometimes has problems with swallowing. She feels like her memory is good. PHYSICAL EXAMINATION She is seen on [facility]. VITAL SIGNS: Temperature is 36.5, pulse is 90, blood pressure 148/93, respirations 18, 94% on room air. GENERAL: She is a morbidly obese, pleasant, elderly female who is sitting at about 50 degrees in her chair with a pillow propping her up, hands crossed over her belly and legs crossed over at the ankles with the recliner put back. During the course of my conversation and exam, she gradually slides down into the chair and is almost scooched all the way down, and needs help to get back up. She does not have the strength to push herself back up, and needs my help and histology aide help to sit up again. HEAD AND NECK: Unremarkable. She is wearing glasses. Sclerae are nonicteric. Pupils reactive. Oral mucosa pink and moist. NECK: Supple. No JVD or goiter. LUNGS: Clear to auscultation and percussion. During the exam, she is diaphragmatic breathing or using her abdominal muscles to take gasping breaths in speaking to me. Daughter says that grandma has been doing this for over 2 months now. This is not new. CARDIOVASCULAR: She has an irregular rate and rhythm that is rate controlled with a soft systolic ejection murmur, as well as a diastolic murmur. ABDOMEN: Obese, soft, protuberant. Nontender. No masses palpable. No fluid wave palpable. EXTREMITIES: The legs have ALBER hose already on them. While they are large, there is no clubbing, cyanosis or edema. NEUROLOGIC: She has right body weakness. She is oriented to person, place, time, date. When I ask her why she is here, she looks at her granddaughter for an answer. I told her "no cheating." She cannot really tell me why she is here. She just knows that her family brought her here because they are worried about her, but she does not know exactly what they are worried about. LABORATORY DATA: CMP is normal. Random glucose is only 118. Lactic acid is 1. Total bilirubin 1.2. BNP 791. TSH 3.5. CBC is normal. Urinalysis is positive nitrite, small leukocyte esterase, 0-5 red cells, 11-25 white cells, no squamous epithelial cells and many bacteria. ASSESSMENT/PLAN 1. Acute confusion. This presented suddenly today. It is not associated with any new medication changes, but in the background context is someone with atrial fibrillation, a renal cell cancer, and worsening respiratory status that has been subtle over the last few weeks. At this time, her acute confusional status is attributed to her urinary tract infection, as well as a right lung infiltrate. Plan: Place the patient in acute inpatient status. Attestation that patient will be admitted less than 96 hours. Treat causes of infection to see if her confusion clears up. If confusion does not clear up with treatment of infection, consider MRI in a patient who has atrial fibrillation without any coagulation. Her baseline neurological exam does not appear to be any worse than usual, other than confusion and generalized weakness. 2. Right lung infiltrate on chest x-ray. She had a right basilar infiltrate in July 2017, and the followup August 2017 chest x-ray showed resolution of that infiltrate. CT of abdomen and pelvis done on 01/17/2018 with lower cuts through the lung show no alarming changes of the lung bases, and they only demonstrated mild atelectasis, so this right middle lobe infiltrate is a definite new problem. Differential diagnosis includes mild community-acquired pneumonia in a patient that is not hypoxic, does not have an elevated white cell count. Could this also be metastatic neoplasm. Low possibility of its own primary neoplasm. Plan: Community-acquired pneumonia protocol with Rocephin and azithromycin. Change antibiotics on the basis of blood cultures. Order sputum cultures if she can produce any. CT of chest without contrast to evaluate for neoplasm versus infiltrate. 3. Urinary tract infection on urinalysis, again associated with acute confusional status. Patient is on Rocephin and azithromycin for problem #2. Plan: Continue treatment with Rocephin until cultures come back and, if they indicate change, will do so. 4. Hypertension. Blood pressure is stable. She will be continued on her usual home medications. 5. Renal cell neoplasm. The mass is about close to 7 x 4 cm big. Conservative management. She is due to be seen again in July by Oncology. 6. History of colon cancer with slowly rising CEA. At this time, the patient opted just for Cologuard. I explained that that was a good temporizing measure because she was not sure if she wanted to do a colonoscopy. However, it is not helping Dr. Islas decide if he is going to put her on anticoagulation or not. She is to follow up with General Surgery in the near future. 7. Chronic systolic congestive heart failure with valvular heart disease. While she is on losartan, she is not on a daily diuretic. BNP is elevated at 791. On examination, she has use of accessory muscles to breathe, but I do not think it is from shortness of breath. Nevertheless, we will watch for fluid overload. Start Lasix 20 mg IV push daily while here. Already on the beta itzel, as well as losartan. 8. Chronic atrial fibrillation. Not anticoagulated at this time. Aim is for rate control, not rhythm control. Continue Lopressor and diltiazem. 9. FULL CODE status. The patient has not thought about what would happen if she had progressive disability from her diseases. She has not thought about what would happen if she does have metastatic spread of renal cell, or recurrence of her colon cancer. She has not thought about resuscitation efforts at all. As such, by default, she is FULL CODE. I hope to sit down with the family tomorrow as a whole to have advanced care planning, and see where they are with their thought process. This is especially important in view of the granddaughter's concerns about family function. 10. Deep venous thrombosis prophylaxis with ALBER coronado. TD: 06/10/2018 16:33 PRICILA
[2018-06-11] MEDS: SODIUM CHLORIDE FLUSH 0.9% 10 ML SYRINGE IVP SCH ×2 (03:50→08:35)
[2018-06-11 05:56] LABS: BASOPHILS % (AUTO) 0.7 %; EOSINOPHILS # (AUTO) 0.1 10^3/uL (0.0-0.7); EOSINOPHILS % (AUTO) 2.1 %; HGB - HEMOGLOBIN 12.6 g/dL (12.0-16.0); LYMPHOCYTES # (AUTO) 1.3 10^3/uL (1.5-3.5); LYMPHOCYTES % (AUTO) 19.5 %; MEAN CORPUSCULAR HGB CONC 33.9 g/dL (32.0-36.0); MEAN CORPUSCULAR VOLUME 88.4 fL (81.0-99.0); MEAN PLATELET VOLUME 8.5 fL (7.9-10.8); MONOCYTES # (AUTO) 0.6 10^3/uL (0.0-1.0); MONOCYTES % (AUTO) 8.7 %; NEUTROPHILS # (AUTO) 4.4 10^3/uL (1.5-6.6); PLT - PLATELET COUNT 179 10^3/uL (130-450); RED BLOOD COUNT 4.21 10^6/uL (4.20-5.40); RED CELL DISTRIBUTION WIDTH 15.5 % (12.0-15.0); WHITE BLOOD COUNT 6.4 x10^3/uL (4.8-10.8)
[2018-06-11 06:06] LABS: CALCIUM 8.7 mg/dL (8.5-10.3); CREATININE 0.6 mg/dL (0.4-1.0)
[2018-06-11 07:51] VITALS: BP 118/67
[2018-06-11] MEDS: METOPROLOL TARTRATE 50 MG TABLET PO SCH (08:34)
[2018-06-11] MEDS: diltiaZEM CD 120 MG CAPSULE PO SCH (08:35)
[2018-06-11] MEDS: FUROSEMIDE 20 MG/2 ML VIAL IVP SCH (08:35)
[2018-06-11] MEDS ORDERED: POLYETHYLENE GLYCOL 3350 17 GM PACKET PO SCH (09:00)
[2018-06-11] MEDS ORDERED: LOSARTAN 50 MG TABLET PO SCH (09:00)
[2018-06-11] MEDS ORDERED: cefTRIAXone 2 GM in SODIUM CHLORIDE 0.9% MINIBAG 100 ML IV SCH (09:00)
[2018-06-11] MEDS: AZITHROMYCIN INJ 500 MG in SODIUM CHLORIDE 0.9% 250 ML IV SCH (10:47)
--- NOTE | 2018-06-11 12:42 | Discharge Plan ---
Discharge Plan Disposition: Home, Self Care Condition: Fair Prescriptions: Levofloxacin [Levaquin] 500 mg PO DAILY #6 tablet Diet: Regular Activity Restrictions: Activity as Tolerated Shower Restrictions: No Driving Restrictions: Yes (no driving) Assistance Devices: Wheelchair Additional Instructions or Follow Up instructions: You were brought into the hospital because of a short episode of confusion that we feel was from a urinary tract infection. You were back to normal by the time you got here but we also found you to have a new possible right lung pneumonia. However the CT scan of the lung shows that there may or may not be an abnormality of the bronchial tube. It may be a cancer. From a treatment perspective, it was very easy to treat you for your urinary tract infection. We will be sending you home on an antibiotic that covers both your urinary tract infection and a possible pneumonia. But you are doing very well. You do not have a fever, you do not have an elevated white cell count, and you do not need oxygen. However the question of what is it that were are seeing in your right lung cannot be answered at this time. I have asked you if you wanted a biopsy to see if this is cancer, and at this time, you think you do not. You are in a weakened state because you have had a stroke in 2013 and are weak on one side of your body, you have irregular heartbeat, and you have chronic congestive heart failure. For those reasons you have not had the kidney cancer resected, and having this tumor resected in your lung would be very problematic. So you are going to go home. I would like you to follow-up with Dr. Galicia. . I have already spoken to them that you were here. Finish the antibiotics for the pneumonia and urinary tract infection. Make sure you get 3 showers a week. That you eat frequent small meals. Your weight is excellent so far. And discussed with your family and your doctor which he would want done for the future if you start to deteriorate from the either the renal cancer or the lung lesion. At this time you have declined getting physical therapy in your home thru Home Health but if you change your mind, let Dr. Galicia know so he can order it. No Smoking: If you smoke, Please STOP! Call for help. Follow-up with: Terry Galicia MD [Provider Admit Priv/Credential] -
--- NOTE | 2018-06-13 18:55 | DISCHARGE SUMMARY ---
Physician: Lola Salgado MD DATE OF ADMISSION: 06/10/2018 DATE OF DISCHARGE: 06/11/2018 PRIMARY CARE PROVIDER: Wilfrid Partida MD. DISCHARGE DIAGNOSES 1. Acute confusion. 2. Right lung infiltrate on chest x-ray. 3. Urinary tract infection. 4. Hypertension. 5. Renal cell neoplasm. 6. History of colon cancer. 7. Elevated carcinoembryonic antigen (CEA). 8. Chronic systolic congestive heart failure. 9. Valvular heart disease. 10. Chronic atrial fibrillation. PRINCIPAL PROCEDURES 1. Head CT negative, other than some signs of aging and atrophy. She has chronic microvascular isch emic disease and old infarct seen on MRI comparison 02/05/2013. 2. Chest x-ray with right middle lobe consolidation with persistent pneumonia and a new small right pleural effusion. 3. Chest CT with small bilateral pleural effusions. Right hemithorax volume loss. There is atelect asis in the right middle lobe and right lower lobe. There is superimposed pneumonia in the right low er lobe, but it is difficult to conclude whether this is pneumonia or something else. There is asymm etric narrowing of the right main stem, upper lobe, middle lobe, and lower lobe bronchi. She has dep endent left lower lobe opacities that are compatible with atelectasis. An 8-mm subpleural nodule in the left lower lobe. Elevated right hemidiaphragm. No pneumothorax. Heart is enlarged. Moderate p ericardial effusion by CT. Dense object in the distal esophagus, most likely an ingested pill. 3. Echocardiogram shows mild concentric left ventricular hypertrophy with global hypokinesia, ejecti on fraction 45%. Left atrium severely dilated. Small circumferential pericardial effusion that is n ot hemodynamically significant. Mildly dilated right ventricle with severe pulmonary hypertension. Pulmonary artery systolic pressure 68 mmHg. Mild to moderate mitral regurgitation. DISCHARGE MEDICATIONS 1. Ascorbic acid 500 mg p.o. daily. 2. Calcium with vitamin D 1 tablet daily. 3. Diltiazem extended release 120 mg daily. 4. Iron 325 mg daily. 5. Glucosamine chondroitin 1000-mg capsule daily. 6. Losartan 100 mg daily. 7. Lysine 500 mg daily. 8. Lopressor 50 mg p.o. b.i.d. 9. Multivitamin 1 capsule daily. 10. Simvastatin 40 mg daily. 11. Levaquin 500 mg p.o. daily #6. I was contacted by PCP office that she is ALLERGIC TO LEVAQUIN. After this, the patient was changed to Augmentin, appropriately so, by her PCP. HOSPITAL COURSE: The patient is a donovan, 83-year-old female who is presenting with acute confusiona l status. She lives in her own home with her . Daughter moved in about 30 years ago to help with her own personal finances, but lately has been taking care of her mom more and more. Mom had a stroke in 2012 and has left her with partial hemiplegia on the right, dysarthria, dysphasia. The pat hai has also had a colon resection twice for colon cancer. Most recent one was 2004. She also has a renal cell cancer that is being observed. No active treatment because of her comorbidities. She w as diagnosed as having atrial fibrillation recently. She was in her PCP office and on routine exam w as found to have irregular heart rate with tachycardia. She was slowed down with atenolol and diltia zem, sent to cardiology. Cardiology feels that they cannot anticoagulate her at this time, until the y know the status of her colon cancer. She has been having episodes of bright-red blood per rectum. She saw the surgeon, who at this time feels that colonoscopy, according to the patient, is not neede d at this. General surgeon explained to her that if she can get Cologuard testing and it is negative that she does not need a colonoscopy, but if it is positive, she would need a colonoscopy. She is n ot being anticoagulated at this time. She woke up this morning at her usual time, went to the bathroom. When daughter went to get her off the toilet, she was acutely confused. Please refer to the detailed history and physical on this josephine ent. HOSPITAL COURSE: She had already cleared her confusion by the time she got to the hospital. She was felt to be at baseline. There is still some confusion and vagueness with affect, but granddaughter and daughter and all state that she is stable. We found a urinary tract infection on her. At the time of discharge, the sensitivities and identific ation were pending, will have to be reviewed. Her lung infiltrate on plain film is suspicious for ne oplasm. As such, CT of the chest was done as above. A family conference was held with several of her children and the patient and her on the day of discharge. The patient says that she does not want to be on life support. She reiterates that is her advanced directive; however, she also does not want surgery. So, she has recurrence of colon ca ncer or spread of her renal neoplasm, she does not want surgery for those diseases. Family describes a subtle deterioration over the last 2-3 months. She is more and more dependent for activities of daily living. As such, at this time, I have recommended that the patient have increased care at home. For instance right now she is only getting sponge bath. I have recommended a full shower 2-3 days a week. [facility] the daughter can do that or if they have to hire someone to help with, that would be good. There is also children and grandchildren that may be able to help to keep an eye on her with regard to nutr itional status. At this time, her weight is stable. Patient stated that she is eating well. I shared with them my suspicions for possible metastatic disease on the chest x-ray. We also did an echocardiogram because CT suggested it might be a large pericardial effusion. Echo shows that it is only a mild to small pericardial effusion. No risk of tamponade at this time. The patient is discharged in stable condition. She responded that she had actually already been stab le when she was admitted, but with the infiltrate on exam and her comorbidities, it was felt prudent to admit her for treatment of pneumonia. During her stay, she did not have a fever, no elevated whit e cell count, and 94% on room air. PHYSICAL EXAMINATION VITAL SIGNS: A discharge temperature is 36.3. Pulse is 84. Blood pressure 118/67. Respirations 24 and O2 saturation 94% on room air. GENERAL: She is a short, moderately overweight, elderly female with dysarthric speech at times, but able to make her wishes known. She is alert and oriented to person, place, date, and time. NECK: Does not have any JVD. Shotty lymph glands, but no adenopathy. No supraclavicular neck adeno devon. LUNGS: Have diminished breath sounds at the bases, but no crackles, rhonchi, wheezing, and a slightl y kyphotic spine structure. CARDIAC: PMI is normally placed with an irregular rate and rhythm and a soft systolic ejection murmu r at the left lower sternal border. ABDOMEN: Soft, slightly protuberant because of kyphosis posturing, but normal bowel sounds. No mass es palpable. EXTREMITIES: Have only trace edema. She has partial hemiplegia on the right. Again, slight right f acial droop, slightly dysarthric speech. Greater than 30 minutes were spent in coordinating discharge. The case discussed with her primary ca re provider's office. See Dr. Mullen, since Dr. Partida is no longer there. cc: Banner, TD: 06/13/2018 17:13
== END 2018-06-11 13:15 | disposition home or self-care (01) | DRG 689 ==
LOC: EDUNIT# → ED 08:58 → MS2 11:47
PROVIDERS: ADMIT Specialist; ATTEND Specialist
DX: J18.1 Lobar pneumonia, unspecified organism (principal); N30.00 Acute cystitis without hematuria; N39.0 Urinary tract infection, site not specified; R41.0 Disorientation, unspecified; I48.91 Unspecified atrial fibrillation; J18.9 Pneumonia, unspecified organism; C64.9 Malignant neoplasm of unspecified kidney, except renal pelvis; I50.22 Chronic systolic (congestive) heart failure; I69.951 Hemiplegia and hemiparesis following unspecified cerebrovascular disease affecting right dominant side; R40.2412 Glasgow coma scale score 13-15, at arrival to emergency department; I48.2 Chronic atrial fibrillation; B96.1 Klebsiella pneumoniae [K. pneumoniae] as the cause of diseases classified elsewhere; I11.0 Hypertensive heart disease with heart failure; R97.0 Elevated carcinoembryonic antigen [CEA]; I08.1 Rheumatic disorders of both mitral and tricuspid valves; E78.5 Hyperlipidemia, unspecified; I69.922 Dysarthria following unspecified cerebrovascular disease; I69.021 Dysphasia following nontraumatic subarachnoid hemorrhage; M41.9 Scoliosis, unspecified; H26.9 Unspecified cataract; R32 Unspecified urinary incontinence; E66.01 Morbid (severe) obesity due to excess calories; Z68.31 Body mass index [BMI] 31.0-31.9, adult; R91.8 Other nonspecific abnormal finding of lung field; Z85.038 Personal history of other malignant neoplasm of large intestine; Z90.49 Acquired absence of other specified parts of digestive tract
CPT/HCPCS: 36415; 51701; 70450; 71046; 71250; 80048; 80053; 81001; 81003; 83605; 83690; 83880; 84443; 84484; 85025; 87040; 87070; 87077; 87086; 87181; 87205; 93005; 93306; 96374; 99284; 99285

== ENCOUNTER 2018-11-29 18:07 | Outpatient (CLI) | payer MEDICARE, OTHER | END 2018-11-29 18:08 | disposition critical access hospital (66) | LOC: EMS 18:07 | PROVIDERS: ATTEND Surgery | DX: R53.1 Weakness (principal) | CPT/HCPCS: A0425; A0429 ==

== ENCOUNTER 2018-11-29 18:37 | Inpatient (IN) | payer MEDICARE, OTHER ==
--- NOTE | 2018-11-29 18:59 | ED Physician Documentation ---
PD HPI FOCAL NEURO - Stated complaint Stated Complaint: RIGHT SIDED WEAKNESS - Chief complaint Chief Complaint: Neuro - History obtained from History obtained from: Patient, Family, EMS - History of Present Illness Timing - onset: Today (She was Normal maybe noon or 1:00. She spends most of the day in the chair. She walks with a walker. tried to get her up for dinner at 1730 and she could not lift her right arm and could not talk. She also has not been able to walk. Most of the history is from the Family as the patient seems mostly aphasic. She has a history of atrial fibrillation. She was on blood thinners but is not now, The family does not know why. Review of chart suggests no anticoagulants d/t bowel CA.) Review of Systems Unable to obtain: Confused PD PAST MEDICAL HISTORY - Past Medical History Cardiovascular: Hypertension Respiratory: None Neuro: CVA Endocrine/Autoimmune: None GI: 21 : Incontinence HEENT: None Psych: None Musculoskeletal: Scoliosis Derm: None, Other - Past Surgical History Past Surgical History: Yes General: Cholecystectomy, Appendectomy, Bowel surgery - Present Medications Home Medications: Ambulatory Orders Medication Instructions Recorded Confirmed RX: Calcium Carb/Vitamin D3/Vit K1 1 each PO DAILY 02/04/13 07/25/18 [Calcium-Vit D3-Vit K Soft Chew] RX: Simvastatin [Zocor] 40 mg PO DAILY 03/02/13 07/25/18 RX: Ferrous Sulfate [Iron] 325 mg PO DAILY 01/15/14 07/25/18 RX: Glucosamine Sulfate 1,000 mg PO DAILY 01/15/14 07/25/18 RX: Losartan [Cozaar] 100 mg PO DAILY 01/15/14 07/25/18 RX: Multivitamin [Multivitamins] 1 cap PO DAILY 01/15/14 07/25/18 RX: Lysine HCl 500 mg PO DAILY 01/26/18 07/25/18 RX: Ascorbic Acid 500 mg PO DAILY 06/10/18 07/25/18 RX: Diltiazem HCl [Diltiazem ER] 120 mg PO DAILY 06/10/18 07/25/18 RX: Metoprolol Tartrate [Lopressor] 50 mg PO BID 06/10/18 07/25/18 RX: Amoxicillin 1 tab ORAL BID 07/25/18 07/25/18 - Allergies Allergies/Adverse Reactions: Allergies Allergy/AdvReac Type Severity Reaction Status Date / Time celecoxib [From Celebrex] Allergy Unknown Verified 11/29/18 18:50 levofloxacin [From Levaquin] Allergy unknown Verified 11/29/18 18:50 metoprolol tartrate * Allergy unknown Verified 11/29/18 18:50 [From Lopressor] benzonatate AdvReac Unknown Rash Verified 11/29/18 18:50 - Social History Does the pt smoke?: No Smoking Status: Never smoker Does the pt drink ETOH?: No Does the pt have substance abuse?: No - Immunizations Immunizations are current?: Yes PD ED PE NORMAL - Vitals Vital signs reviewed: Yes - General General: Other (She is alert and follows simple commands. She is able to state her name. She cannot states the month, the year, or that she is in the hospital but responds with the affirmative when I asked her if she is in the hospital.) - HEENT HEENT: PERRL, EOMI - Neck Neck: Supple, no meningeal sign, No bony TTP - Cardiac Cardiac: Other (Irregularly irregular) - Respiratory Respiratory: No respiratory distress, Clear bilaterally - Abdomen Abdomen: Soft, Non tender - Derm Derm: Normal color, Warm and dry - Extremities Extremities: Other (Moderate bilateral pitting pedal edema, worse on the right than the left) - Psych Psych: Normal mood, Normal affect NIHSS - Time Time: 18:50 - Level of Consciousness Level of consciousness: (1) Not alert, but arousable by minor stimulation to obey, or answer LOC Questions: (2) Answers neither correct LOC Commands: (0) Performs both correctly - Gaze Best Gaze: (0) Normal - Visual Visual: (2) Complete Hemianopia (I am unable to check visual cowan formally but she does not respond to threat on the right) - Facial Palsy Facial Palsy: (0) Normal, symmetrical movement - Motor Arms (both separate) Motor Arm (right): (2) Some effort against gravity Motor Arm (left): (0) No drift - Motor Legs (both separate) Motor Leg (right): (2) Some effort against gravity Motor Leg (left): (2) Some effort against gravity - Limb Ataxia Limb Ataxia: (0) Absent - Sensory Sensory: (1) Gfdp-[id number] loss - Best Language Best Language: (1) [id number] - Dysarthria Dysarthria: (1) [id number]-[id number] dysarthria - Extinction and Inattention (formally neg Extinction and inattention: (1) Visual,tactile,auditory,spatial, or personal inattention - Total Score/Results Total Score/Result: 15 Results - Vitals Vitals: Vital Signs - 24 hr 11/29/18 11/29/18 11/29/18 18:38 19:46 21:00 Temperature 36.4 C L Heart Rate 100 96 78 Respiratory 16 25 H 23 Rate Blood Pressure 114/91 H 123/90 H 125/88 H O2 Saturation 96 91 L 95 Oxygen O2 Source Room air - EKG (time done) 1850 Rate: Rate (enter#) (109) Rhythm: Atrial fibrillation Intervals: LBBB Computer interpretation: Agree with computer - Labs Labs: Laboratory Tests 11/29/18 11/29/18 11/29/18 19:13 19:13 19:13 WBC 5.2 RBC 4.19 L Hgb 12.8 Hct 37.6 MCV 89.7 MCH 30.6 MCHC 34.1 RDW 16.2 H Plt Count 166 MPV 8.5 Neut # (Auto) 3.1 Lymph # (Auto) 1.5 [place] # (Auto) 0.5 Eos # (Auto) 0.1 Baso # (Auto) 0.0 Absolute Nucleated RBC 0.00 Nucleated RBC % 0.0 PT 14.1 H INR 1.3 H Sodium 137 Potassium 3.1 L Chloride 103 Carbon Dioxide 26 Anion Gap 8.0 BUN 11 Creatinine 0.5 Estimated GFR (MDRD) 118 Glucose 106 H Calcium 8.8 Total Bilirubin 1.4 H AST 19 ALT < 10 L Alkaline Phosphatase 72 Total Creatine Kinase 36 CK-MB (CK-2) Troponin I Total Protein 6.4 L Albumin 3.2 Globulin 3.2 Albumin/Globulin Ratio 1.0 Lipase 39 11/29/18 19:13 WBC RBC Hgb Hct MCV MCH MCHC RDW Plt Count MPV Neut # (Auto) Lymph # (Auto) [place] # (Auto) Eos # (Auto) Baso # (Auto) Absolute Nucleated RBC Nucleated RBC % PT INR Sodium Potassium Chloride Carbon Dioxide Anion Gap BUN Creatinine Estimated GFR (MDRD) Glucose Calcium Total Bilirubin AST ALT Alkaline Phosphatase Total Creatine Kinase CK-MB (CK-2) 1.0 Troponin I < 0.04 Total Protein Albumin Globulin Albumin/Globulin Ratio Lipase - Rads (name of study) CT Head Radiology: EMP read contemporaneously (White matter dz, NAD) PD MEDICAL DECISION MAKING - ED course Complexity details: reviewed old records (She is not anticoagulated because of potential GI bleeding from recurrent colon cancer), d/w family (Because of the colon cancer, the history of stroke, the unclear time of onset, and per them her right arm is improving I do not think she would be a good TPA candidate. They are in agreement with this.) ED course: 83yo Woman who presents with an acute CVA with right-sided hemiplegia. Also some word finding difficulties and can fusion. NIH stroke scale pretty high at 15. Given the unclear time of onset, high bleeding risk given active cancer I do not think she is a good TPA candidate and the family agrees. She also had some improvement on the way here, but this seemed of stagnated throughout her emergency department visit. Head CT shows nothing acute. Spoke with Dr. Disla for admission at 8:53 PM. Departure - Departure Disposition: 66 [facility] DC/Xfer Clinical Impression: Cerebrovascular accident (CVA) Condition: Stable Discharge Date/Time: 11/29/18 22:22
[2018-11-29 19:23] LABS: BASOPHILS % (AUTO) 0.6 %; EOSINOPHILS # (AUTO) 0.1 10^3/uL (0.0-0.7); EOSINOPHILS % (AUTO) 1.6 %; HGB - HEMOGLOBIN 12.8 g/dL (12.0-16.0); LYMPHOCYTES # (AUTO) 1.5 10^3/uL (1.5-3.5); MEAN CORPUSCULAR HEMOGLOBIN 30.6 pg (27.0-31.0); MEAN CORPUSCULAR HGB CONC 34.1 g/dL (32.0-36.0); MEAN CORPUSCULAR VOLUME 89.7 fL (81.0-99.0); MEAN PLATELET VOLUME 8.5 fL (7.9-10.8); MONOCYTES # (AUTO) 0.5 10^3/uL (0.0-1.0); MONOCYTES % (AUTO) 10.2 %; NEUTROPHILS # (AUTO) 3.1 10^3/uL (1.5-6.6); NEUTROPHILS % (AUTO) 59.6 %; PLT - PLATELET COUNT 166 10^3/uL (130-450); RED BLOOD COUNT 4.19 10^6/uL (4.20-5.40); RED CELL DISTRIBUTION WIDTH 16.2 % (12.0-15.0); WHITE BLOOD COUNT 5.2 x10^3/uL (4.8-10.8)
[2018-11-29 19:32] LABS: ALBUMIN 3.2 g/dL (3.2-5.5); ALKALINE PHOSPHATASE 72 IU/L (42-121); ALT ALANINE AMINOTRANSFERASE < 10 IU/L (10-60); AST ASPARTATE AMINOTRANSFERASE 19 IU/L (10-42); BILIRUBIN,TOTAL 1.4 mg/dL (0.2-1.0); BUN - BLOOD UREA NITROGEN 11 mg/dL (6-20); CALCIUM 8.8 mg/dL (8.5-10.3); CARBON DIOXIDE - CO2 26 mmol/L (21-32); CHLORIDE 103 mmol/L (101-111); CK- CREATINE KINASE 36 IU/L (22-269); CREATININE 0.5 mg/dL (0.4-1.0); GFR - MDRD 118 (>89); GLUCOSE 106 mg/dL (70-100); INR 1.3 (0.8-1.2); LIPASE 39 U/L (22-51); PT - PROTHROMBIN TIME 14.1 secs (9.9-12.6); SODIUM 137 mmol/L (135-145); TOTAL PROTEIN 6.4 g/dL (6.7-8.2)
[2018-11-29 19:37] LABS: TROPONIN I < 0.04 ng/mL (<0.49)
--- NOTE | 2018-11-29 19:53 | CT Report ---
Reason: CVA with R side defecits Procedure Date: 11/29/2018 Accession Number: [id number] / [id number] Procedure: CT - HEAD WO CPT Code: FULL RESULT: EXAM: CT HEAD EXAM DATE: 11/29/2018 07:33 PM. CLINICAL HISTORY: CVA with R side defects. COMPARISON: HEAD W/O 06/10/2018 9:46 AM. TECHNIQUE: Multiaxial CT images were obtained from the foramen magnum to the vertex. Reformats: Sagittal and coronal. IV contrast: None. In accordance with CT protocol optimization, one or more of the following dose reduction techniques were utilized for this exam: automated exposure control, adjustment of mA and/or KV based on patient size, or use of iterative reconstructive technique. FINDINGS: Parenchyma: There is moderate periventricular white matter hypodensity. Negative for acute intracranial hemorrhage. There is no midline shift or mass-effect. No asymmetric dense intracranial artery. Extraaxial Spaces: No subdural or epidural hematoma. Ventricles: Ventricles appear enlarged but normal in position. Sinuses and Orbits: Imaged paranasal sinuses, orbits, and mastoids show no significant abnormality. Bones: No evidence of fracture or calvarial defect. Other: None. IMPRESSION: 1. Moderate nonfocal diffuse white matter disease. 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 2. No acute hemorrhage or mass-effect. RADIA
[2018-11-29] MEDS ORDERED: SODIUM CHLORIDE FLUSH 0.9% 10 ML SYRINGE IVP PRN (21:51)
--- NOTE | 2018-11-29 22:10 | HISTORY & PHYSICAL EXAMINATION ---
Chief Complaint - Chief Complaint Chief Complaint: right-sided weakness, aphasia, confusion History of Present Illness - Admitted From Admitted From:: [facility] ED - History Obtained From Records Reviewed: yes History obtained from: daughter and Exam Limitations: dysarthria - History of Present Illness HPI Comment/Other: Patient seen on 11/29/18 at 2145 pm Patient is an 83 y/o female who presented to [facility] ED with complain of worsening right-sided weakness, dysarthria and confusion. Symptoms started around 4:30pm-5:30 pm. Patient's and their daughter (Marissa) is at bedside and help provide this history. The patient has a previous history of a stroke in January 2013 with right-sided weakness. It is documented in previous notes that the patient is wheelchair bound. However family at bedside reports that until today and despite the previous strokes she has been able to get around using a walker, feeding herself and communicating with her family just fine. However she was unable to move her right arm or leg today and her speech is significantly delayed. She also had slurred speech earlier. She was given an NIHSS of 15 in the ED She is barely able to move her right toes. He right leg appears more edematous. She is unable to do a finger to nose test. She has 3/5 muscle strength on the left upper extremity and 1/5 on the right. Her medical history includes atrial fibrillation. However she is not on anticoagulation owing to history of colon cancer s/p resection in 1978 with recurrence and a hemicolectomy in 2004 and hemorrhoid with rectal bleed as recently as 2018. She also has history of renal cell cancer biopsy proven in 2007 for which she was deemed not a surgical candidate due to her multiple co- morbidities History - Past Medical History Cardiovascular: reports: Hypertension, Atrial fibrillation Respiratory: reports: None Neuro: reports: CVA Endocrine/Autoimmune: reports: None GI: : reports: Incontinence HEENT: reports: None Psych: reports: None Musculoskeletal: reports: Scoliosis Derm: reports: None, Other MRSA Hx?: No Other Past Medical History: colon cancer, renal cancer, ? lung cancer - Past Surgical History General: reports: Cholecystectomy, Appendectomy, Bowel surgery - Family & Social History Family History Comment/Other: father at 60 of complications of CHF, COPD, stroke and [place]. mother at 89 with hypertension, CKD and CAD. Three siblingd. 2 . One brother multiple myeloma, another had brain aneurysm. Sister alive but has had a brain aneurysm. Has 8 children. 1 son has diabetes, one child of a stroke Living arrangement: At home Living Situation: With family Meds/Allgy - Home Medications Home Medications: Ambulatory Orders Medication Instructions Recorded Confirmed Calcium Carb/Vitamin D3/Vit K1 1 each PO DAILY 02/04/13 07/25/18 [Calcium-Vit D3-Vit K Soft Chew] Simvastatin [Zocor] 40 mg PO DAILY 03/02/13 07/25/18 Ferrous Sulfate [Iron] 325 mg PO DAILY 01/15/14 07/25/18 Glucosamine Sulfate 1,000 mg PO DAILY 01/15/14 07/25/18 Losartan [Cozaar] 100 mg PO DAILY 01/15/14 07/25/18 Multivitamin [Multivitamins] 1 cap PO DAILY 01/15/14 07/25/18 Lysine HCl 500 mg PO DAILY 01/26/18 07/25/18 Ascorbic Acid 500 mg PO DAILY 06/10/18 07/25/18 Diltiazem HCl [Diltiazem ER] 120 mg PO DAILY 06/10/18 07/25/18 Metoprolol Tartrate [Lopressor] 50 mg PO BID 06/10/18 07/25/18 Amoxicillin 1 tab ORAL BID 07/25/18 07/25/18 - Allergies Allergies/Adverse Reactions: Allergies Allergy/AdvReac Type Severity Reaction Status Date / Time celecoxib [From Celebrex] Allergy Unknown Verified 11/29/18 18:50 levofloxacin [From Levaquin] Allergy unknown Verified 11/29/18 18:50 metoprolol tartrate * Allergy unknown Verified 11/29/18 18:50 [From Lopressor] benzonatate AdvReac Unknown Rash Verified 11/29/18 18:50 Review of Systems - Other Findings Other Findings: ROS is limited due to dysarthria Prior Level of Functionality: Patient is dependent of family: daughter and for activities of daily living. Concerns has been raised by her granddaughter about family function and ability to provide the needed care to the patient Exam - Vital Signs Reviewed Vital Signs: Yes Vital Signs: Vital Signs x48h Temp Pulse Resp BP Pulse Ox 11/29/18 21:00 78 23 125/88 H 95 11/29/18 19:46 96 25 H 123/90 H 91 L 11/29/18 18:38 36.4 C L 100 16 114/91 H 96 - Physical Exam General Appearance: positive: No acute distress, Alert Eyes Bilateral: positive: Normal inspection, PERRL, EOMI ENT: positive: Purulent nasal drainage, Pharyngeal erythema, Dry mucous membranes Neck: positive: Nml inspection, No JVD, Trachea midline Respiratory: positive: Chest non-tender, No respiratory distress, Breath sounds nml. negative: Wheezes, Rales, Rhonchi Cardiovascular: positive: Irregularly irregular Abdomen: positive: Non-tender, Nml bowel sounds Skin: positive: Color nml, No rash, Warm, Dry Extremities: positive: Pedal edema (R>L). negative: Full ROM, Nml appearance Neurologic/Psychiatric: positive: Disoriented to person, Disoriented to place, Disoriented to time, Weakness, Slurred/abnml speech, Depressed mood/affect. negative: Motor nml, Facial droop Conclusion/Plan - Problem List (1) Cerebrovascular accident (CVA) Conclusion/Plan: Presumed. In light of persistent worsened right-sided weakness, slurred speech, dysarthria and dysphagia. I pointed this out to the family: and daughter (Marissa) seemed to have a near syncopal episode in the ED when I informed them. I had an extensive conversation with the family in the ED. Intention was to know what direction they will like to proceed with the patient's care and how aggressive. They were clear on NO additional work up and said that is what the patient would want. As such no MRI, 2D echo, lipid panel, HgA1c has been ordered Next we discussed Code Status. I explained the difference between full code, DNR and comfort measures They instantly said the patient did not wast to be DNR. Then added that the patient did not want to be on life support They then said they wanted the patient to be kept comfortable. I explained that as such my treatments will only be directed at comfort and no curative measures. I asked if they had ever been talked with about hospice Daughter said the father/ was not interested and would rather take care of patient at home It bears noting that a granddaughter has expressed concern about family function and the level of care the patient is getting at home. I proposed physical therapy assessment with recommendations and consideration for placement. They immediately said no to rehab and are skeptical about therapy assessment I proposed a visit form oncology social work with the intention of facilitating transition from hospital to home They are again skeptical but agreed. Patient is currently NPO with a speech eval in the am After admission to the hospital on comfort measure, I was informed by the nurse that the daughter now wished to make the patient a full code but no intubation. I went back and reviewed the dynamics of an actual code with the daughter and highlighting the limitations of CPR without intubation. I also asked if there was a change in the plan of care in light of the requested change in code status. She expressed that she is not willing to make the decision alone without her other siblings. We left it as the patient being FULL CODE STATUS but that family has decline any further testing. In reviewing the discharge summary of 06/11/[address] Lola Salgado, it is clearly stated that the patient does not want to be on life support. We will revisit this in the am Qualifiers: CVA mechanism: unspecified Qualified Code(s): I63.9 - Cerebral infarction, unspecified (2) Atrial fibrillation Conclusion/Plan: Rate controlled. Not on any medication Qualifiers: Atrial fibrillation type: chronic Qualified Code(s): I48.2 - Chronic atrial fibrillation (3) Renal neoplasm Conclusion/Plan: Conservative management. Patient and family have declined any further work up (5) Hypertension Conclusion/Plan: Currently normotensive On cozaar (6) History of chronic congestive heart failure Conclusion/Plan: Cozaar only (7) Hyperlipidemia Conclusion/Plan: On simvastatin - Lab Results Fish Bones: 11/29/18 19:13 11/29/18 19:13
[2018-11-29] MEDS: D5.45NS W/20 MEQ KCL 1,000 ML IV SCH (23:18)
[2018-11-29] MEDS: SODIUM CHLORIDE FLUSH 0.9% 10 ML SYRINGE IVP SCH (23:47)
[2018-11-30] MEDS: MIN OIL/DIMETHICON/COCONUT OIL 92 GM TUBE TOP PRN ×2 (04:06→20:10)
[2018-11-30] MEDS: NYSTATIN POWDER 15 GM TOP SCH ×3 (04:06→20:10)
[2018-11-30] MEDS: POLYETHYLENE GLYCOL 3350 17 GM PACKET PO SCH (09:55)
[2018-11-30] MEDS: SODIUM CHLORIDE FLUSH 0.9% 10 ML SYRINGE IVP SCH ×2 (09:55→17:53)
[2018-11-30] MEDS: D5.45NS W/20 MEQ KCL 1,000 ML IV SCH (12:29)
--- NOTE | 2018-11-30 12:36 | PROVIDER PROGRESS NOTE ---
Subjective - Prog Note Date Prog Note Date: 11/30/18 Prog Note Time: 10:45 - Subjective Subjective: Family at the bedside She is alert, able to tell me her name, knows she is at [facility] She denies pain Right side remains profoundly weaker from baseline Awaiting PT/OT/ACCOUNTING COORDINATOR consults Patient made full code overnight, in discussing with her at the bedside today, patient wishes to be DNR On 1L NC Current Medications - Current Medications Current Medications: Potassium Chloride/Dextrose/Sod Cl (D5.45ns W/20 Meq Kcl) 1,000 mls @ 75 mls/hr IV .[id number] [facility] Last Admin: 11/30/18 12:29 Dose: 75 mls/hr Mineral Oil (Cavilon) 1 applic TOP PRN PRN PRN Reason: Skin Care Last Admin: 11/30/18 04:06 Dose: 1 applic Nystatin (Nystop) 1 applic TOP BID [facility] Last Admin: 11/30/18 12:30 Dose: 1 applic Polyethylene Glycol (Miralax) 17 gm PO DAILY [facility] Last Admin: 11/30/18 09:55 Dose: Not Given Sodium Chloride (Normal Saline Flush 0.9%) 10 ml IVP PRN PRN PRN Reason: NEEDED PER PROVIDER ORDERS Last Admin: 11/29/18 23:18 Dose: 10 ml Sodium Chloride (Normal Saline Flush 0.9%) 10 ml IVP 0100,0900,1700 [facility] Last Admin: 11/30/18 09:55 Dose: Not Given Home Medications: Calcium Carb/Vitamin D3/Vit K1 [Calcium-Vit D3-Vit K Soft Chew] 1 each PO DAILY 02/04/13 Simvastatin [Zocor] 40 mg PO DAILY 03/02/13 Ferrous Sulfate [Iron] 325 mg PO DAILYWM 01/15/14 Glucosamine Sulfate 1,000 mg PO BID 01/15/14 Multivitamin [Multivitamins] 1 cap PO QPM 01/15/14 Lysine HCl 500 mg PO DAILY 01/26/18 Ascorbic Acid 500 mg PO DAILY 06/10/18 Diltiazem HCl [Diltiazem ER] 120 mg PO DAILY@1600 06/10/18 Metoprolol Tartrate [Lopressor] 50 mg PO BID 06/10/18 Azelastine HCl 1 drops EACHEYE BID 11/30/18 Docusate Sodium [Dulcolax Stool Softener] 100 mg PO DAILY 11/30/18 Furosemide [Lasix] 20 mg PO DAILY 11/30/18 Hydrocortisone [Anusol-Hc] 1 applic RC PRN PRN 11/30/18 Losartan Potassium [Cozaar] 100 mg PO DAILY 11/30/18 Nystatin [Nystop] 1 applic TOP BID 11/30/18 Oxycodone HCl 2.5 mg PO Q8H PRN 11/30/18 Pramoxine HCl [Proctofoam] 1 applic RC TID 11/30/18 Objective - Vital Signs/Intake & Output Reviewed Vital Signs: Yes Vital Signs: Vital Signs x48h Temp Pulse Pulse Resp BP Pulse Ox 11/30/18 08:00 36.6 C 83 26 H 124/70 95 11/30/18 05:10 36.5 C 77 18 94 Intake & Output: Intake & Output 11/27/18 11/28/18 11/29/18 11/30/18 23:59 23:59 23:59 23:59 Intake Total 988.75 Balance 988.75 - Objective General Appearance: positive: No acute distress, Alert Eyes Bilateral: positive: Normal inspection, PERRL, EOMI ENT: positive: Dry mucous membranes (Patient is a mouth breather) Neck: positive: Nml inspection, Trachea midline Respiratory: positive: Chest non-tender, No respiratory distress, Breath sounds nml. negative: Wheezes, Rales, Rhonchi Cardiovascular: positive: No murmur, No gallop, Irregularly irregular. negative: Tachycardia Peripheral Pulses: 2+ Dorsalis pedis (R), 2+ Dorsalis pedis (L) Abdomen: positive: Non-tender, No organomegaly, Nml bowel sounds, No distention. negative: Guarding, Rebound Skin: positive: Warm, Dry Extremities: positive: Pedal edema (R>L, Right foot 2+ edema) Neurologic/Psychiatric: positive: Motor nml, Disoriented to time (oriented to person and place), Other (Able to squeeze right hand and move right toes to command. Unable to lift arm or bend knee.). negative: Facial droop - Lab Results Fish Bones: 11/29/18 19:13 11/29/18 19:13 Other Labs: Lab Results x24hrs 11/29/18 11/29/18 11/29/18 Range/Units 19:13 19:13 19:13 WBC (4.8-10.8) x10^3/uL RBC (4.20-5.40) 10^6/uL Hgb (12.0-16.0) g/dL Hct (37.0-47.0) % MCV (81.0-99.0) fL MCH (27.0-31.0) pg MCHC (32.0-36.0) g/dL RDW (12.0-15.0) % Plt Count (130-450) 10^3/uL MPV (7.9-10.8) fL Neut # (Auto) (1.5-6.6) 10^3/uL Lymph # (Auto) (1.5-3.5) 10^3/uL Wise # (Auto) (0.0-1.0) 10^3/uL Eos # (Auto) (0.0-0.7) 10^3/uL Baso # (Auto) (0.0-0.1) 10^3/uL Absolute Nucleated RBC x10^3/uL Nucleated RBC % /100WBC PT 14.1 H (9.9-12.6) secs INR 1.3 H (0.8-1.2) Sodium 137 (135-145) mmol/L Potassium 3.1 L (3.5-5.0) mmol/L Chloride 103 (101-111) mmol/L Carbon Dioxide 26 (21-32) mmol/L Anion Gap 8.0 (6-13) BUN 11 (6-20) mg/dL Creatinine 0.5 (0.4-1.0) mg/dL Estimated GFR (MDRD) 118 (>89) Glucose 106 H (70-100) mg/dL Calcium 8.8 (8.5-10.3) mg/dL Total Bilirubin 1.4 H (0.2-1.0) mg/dL AST 19 (10-42) IU/L ALT < 10 L (10-60) IU/L Alkaline Phosphatase 72 (42-121) IU/L Total Creatine Kinase 36 (22-269) IU/L CK-MB (CK-2) 1.0 (0.6-6.3) ng/mL Troponin I < 0.04 (<0.49) ng/mL Total Protein 6.4 L (6.7-8.2) g/dL Albumin 3.2 (3.2-5.5) g/dL Globulin 3.2 (2.1-4.2) g/dL Albumin/Globulin Ratio 1.0 (1.0-2.2) Lipase 39 (22-51) U/L 11/29/18 Range/Units 19:13 WBC 5.2 (4.8-10.8) x10^3/uL RBC 4.19 L (4.20-5.40) 10^6/uL Hgb 12.8 (12.0-16.0) g/dL Hct 37.6 (37.0-47.0) % MCV 89.7 (81.0-99.0) fL MCH 30.6 (27.0-31.0) pg MCHC 34.1 (32.0-36.0) g/dL RDW 16.2 H (12.0-15.0) % Plt Count 166 (130-450) 10^3/uL MPV 8.5 (7.9-10.8) fL Neut # (Auto) 3.1 (1.5-6.6) 10^3/uL Lymph # (Auto) 1.5 (1.5-3.5) 10^3/uL Wise # (Auto) 0.5 (0.0-1.0) 10^3/uL Eos # (Auto) 0.1 (0.0-0.7) 10^3/uL Baso # (Auto) 0.0 (0.0-0.1) 10^3/uL Absolute Nucleated RBC 0.00 x10^3/uL Nucleated RBC % 0.0 /100WBC PT (9.9-12.6) secs INR (0.8-1.2) Sodium (135-145) mmol/L Potassium (3.5-5.0) mmol/L Chloride (101-111) mmol/L Carbon Dioxide (21-32) mmol/L Anion Gap (6-13) BUN (6-20) mg/dL Creatinine (0.4-1.0) mg/dL Estimated GFR (MDRD) (>89) Glucose (70-100) mg/dL Calcium (8.5-10.3) mg/dL Total Bilirubin (0.2-1.0) mg/dL AST (10-42) IU/L ALT (10-60) IU/L Alkaline Phosphatase (42-121) IU/L Total Creatine Kinase (22-269) IU/L CK-MB (CK-2) (0.6-6.3) ng/mL Troponin I (<0.49) ng/mL Total Protein (6.7-8.2) g/dL Albumin (3.2-5.5) g/dL Globulin (2.1-4.2) g/dL Albumin/Globulin Ratio (1.0-2.2) Lipase (22-51) U/L Assessment/Plan - Problem List (1) Cerebrovascular accident (CVA) Impression: Presumed at this point given persistent worsened right-sided weakness, slurred speech, dysarthria and dysphagia. Per admitting provider, they were clear on NO additional work up and said that is what the patient would want. As such no MRI, 2D echo, lipid panel, HgA1c has been ordered. She is currently NPO. Code status was re-visited with the patient's today. He reports living will and advanced directives have been filled out and the patient would not want CPR or intubation, to be allowed a natural . They again relay to focus on comfort measures only. Patient's has POLST forms for him and hi s , he would like to discuss these with their PCP Dr. Galicia. Plan: PT/OT/ACCOUNTING COORDINATOR evaluations MANAGER CLIENT SUPPORT to discuss further care options for care at home and/or hospice referral Will have further discussions re:POC once evaluations have been completed Qualifiers: CVA mechanism: unspecified Qualified Code(s): I63.9 - Cerebral infarction, unspecified (2) Atrial fibrillation Impression: Rate controlled. Not on any medication. She is not on anticoagulation due to history of colon cancer s/p resection in 1978 with recurrence and a hemicolectomy in 2004 and hemorrhoid with rectal bleed as recently as 2018. Plan: continue tele for now Qualifiers: Atrial fibrillation type: chronic Qualified Code(s): I48.2 - Chronic atrial fibrillation (3) Hypertension Impression: Currently normotensive On cozaar at home Plan: hold cozaar until ACCOUNTING COORDINATOR evaluation complete (4) History of chronic congestive heart failure Impression: Cozaar only Plan: hold cozaar until ACCOUNTING COORDINATOR evaluation complete (5) Hyperlipidemia Impression: On simvastatin Plan: hold simvastatin until ACCOUNTING COORDINATOR evaluation complete (6) Renal neoplasm Impression/plan: Conservative management. Patient and family have declined any further work up
[2018-12-01] MEDS: D5.45NS W/20 MEQ KCL 1,000 ML IV SCH (00:23)
[2018-12-01] MEDS: SODIUM CHLORIDE FLUSH 0.9% 10 ML SYRINGE IVP SCH ×2 (01:51→12:15)
[2018-12-01] MEDS ORDERED: oxyCODONE 5 MG TABLET PO PRN (07:50)
[2018-12-01 08:27] VITALS: BP 107/79
[2018-12-01] MEDS: LOSARTAN 50 MG TABLET PO SCH ×3 (08:54→09:07)
[2018-12-01] MEDS: METOPROLOL TARTRATE 50 MG TABLET PO SCH ×2 (08:54→09:06)
[2018-12-01] MEDS ORDERED: LYSINE HCL 500 MG PO SCH (09:00)
[2018-12-01] MEDS ORDERED: AZELASTINE HCL EACHEYE SCH (09:00)
[2018-12-01] MEDS ORDERED: NYSTATIN POWDER 15 GM TOP SCH (09:00)
--- NOTE | 2018-12-01 11:36 | Discharge Plan ---
Discharge Plan Disposition: 50 Hospice/Home DC/Xfer Condition: Poor Activity Restrictions: Activity as Tolerated Assistance Devices: Wheelchair, Walker Additional Instructions or Follow Up instructions: You were admitted for a presumed stroke given your persistent weakness of your right arm and leg. In discussions with your family, the goal during your hospitalization was to focus on comfort, so further imaging was not completed. Hospice was consulted and you will be discharged home with hospice intake to be completed this afternoon 12/01/2018 at 3 pm. Speech therapy evaluated you during your stay in the hospital and she recommends that you are on a pureed diet with thin liquids. You may eat and drink as you wish while you are awake and able to eat. Pills can be crushed in applesauce. You need to eat meals sitting up in the chair. You and your family were given a list of caregivers to hire to provide extra care in the home. Your care needs have changed from before your hospitalization and you will require extra care at home for toileting, dressing, eating, and bathing. If your family is unable to provide all of the care you need, I encourage them to look at resources for more care at home prior to it becoming too much to handle. Follow-Up Care: Hospice No Smoking: If you smoke, Please STOP! Call for help. Follow-up with: Terry Galicia MD [Primary Care Provider] -
--- NOTE | 2018-12-01 11:37 | DISCHARGE SUMMARY ---
"Discharge Summary Admit Date: 11/29/18 Discharge Date: 12/01/18 Discharging Provider: Alix POTTS Primary Care Provider: Dr. Terry Galicia Code Status: Do Not Attempt Resuscitation Condition at Discharge: Poor Discharge Disposition: 50 Hospice/Home DC/Xfer - DIAGNOSES Admission Diagnoses: (1) Cerebrovascular accident (CVA) (2) Atrial fibrillation (3) Renal neoplasm (5) Hypertension (6) History of chronic congestive heart failure (7) Hyperlipidemia Discharge Diagnoses with Status of Each Condition: (1) Cerebrovascular accident (CVA), stable (2) Atrial fibrillation, stable (3) Renal neoplasm, stable (5) Hypertension, stable (6) History of chronic congestive heart failure, stable (7) Hyperlipidemia, stable - HPI History of Present Illness: As per Dr. Trenton Disla H&P dated 11/29/2018: 'Patient seen on 11/29/18 at 2145 pm Patient is an 83 y/o female who presented to [facility] ED with complain of worsening right-sided weakness, dysarthria and confusion. Symptoms started around 4:30pm-5:30 pm. Patient's and their daughter (Marissa) is at bedside and help provide this history. The patient has a previous history of a stroke in January 2013 with right-sided weakness. It is documented in previous notes that the patient is wheelchair bound. However family at bedside reports that until today and despite the previous strokes she has been able to get around using a walker, feeding herself and communicating with her family just fine. However she was unable to move her right arm or leg today and her speech is significantly delayed. She also had slurred speech earlier. She was given an NIHSS of 15 in the ED She is barely able to move her right toes. He right leg appears more edematous. She is unable to do a finger to nose test. She has 3/5 muscle strength on the left upper extremity and 1/5 on the right. Her medical history includes atrial fibrillation. However she is not on anticoagulation owing to history of colon cancer s/p resection in 1978 with recurrence and a hemicolectomy in 2004 and hemorrhoid with rectal bleed as recently as 2018. She also has history of renal cell cancer biopsy proven in 2007 for which she was deemed not a surgical candidate due to her multiple co- morbidities' - CONSULTS | PROCEDURES Consultations: None - HOSPITAL COURSE Hospital Course: By problem: (1) Cerebrovascular accident (CVA) Presumed at this point given persistent worsened right-sided weakness, slurred speech, dysarthria and dysphagia. Per admitting provider, family was clear on NO additional work up and said that is what the patient would want. As such no MRI, 2D echo, lipid panel, HgA1c was ordered. Code status was re-visited with the patient's . He reported living will and advanced directives have been filled out and the patient would not want CPR or intubation, to be allowed a natural . They again relayed to focus on comfort measures only. NAIL SETTER evaluated the patient and recommended a pureed diet with thin liquids. A hospice referral was made and the patient will be discharged today with hospice intake to occur this afternoon. Given her change in functional status from prior to her presentation to the hospital, it was recommended that the patient receive more care. The was adamant in taking the patient home. INSPECTOR OPEN DIE was consulted and assisted with providing care agencies for the family to contact to set up more services at home. (2) Atrial fibrillation Rate controlled on dilitazem and metoprolol. She is not on anticoagulation due to history of colon cancer s/p resection in 1978 with recurrence and a hemicolectomy in 2004 and hemorrhoid with rectal bleed as recently as 2018. (3) Hypertension Her blood pressure was stable during hospitalization. (4) History of chronic congestive heart failure stable, home medications were continued once passed swallow evaluation (5) Hyperlipidemia simvastatin was continued once passed swallow evaluation (6) Renal neoplasm Conservative management. Patient and family have declined any further work up - ALLERGIES Allergies/Adverse Reactions: Allergies Allergy/AdvReac Type Severity Reaction Status Date / Time celecoxib [From Celebrex] Allergy Severe Rash Verified 11/30/18 09:15 levofloxacin [From Levaquin] Allergy Intermediate Itching Verified 11/30/18 09:15 benzonatate AdvReac Unknown Rash Verified 11/29/18 18:50 - MEDICATIONS Home Medications: Ambulatory Orders Medication Instructions Recorded Confirmed Simvastatin [Zocor] 40 mg PO DAILY 03/02/13 11/30/18 Lysine HCl 500 mg PO DAILY 01/26/18 11/30/18 Diltiazem HCl [Diltiazem ER] 120 mg PO DAILY@1600 06/10/18 11/30/18 Metoprolol Tartrate [Lopressor] 50 mg PO BID 06/10/18 11/30/18 Azelastine HCl 1 drops EACHEYE BID 11/30/18 11/30/18 Losartan Potassium [Cozaar] 100 mg PO DAILY 11/30/18 11/30/18 Nystatin [Nystop] 1 applic TOP BID 11/30/18 11/30/18 Oxycodone HCl 2.5 mg PO Q8H PRN 11/30/18 11/30/18 Pramoxine HCl [Proctofoam] 1 applic RC TID 11/30/18 11/30/18 - PHYSICAL EXAM AT DISCHARGE General Appearance: positive: No acute distress, Alert (sitting up in the chair. on 1L oxygen via NC), Other ENT: positive: ENT inspection nml, Pharynx nml, No signs of dehydration Neck: positive: Nml inspection, Trachea midline Respiratory: positive: Chest non-tender, No respiratory distress, Breath sounds nml. negative: Wheezes, Rales, Rhonchi Cardiovascular: positive: No murmur, No gallop, Irregularly irregular Peripheral Pulses: positive: 2+ Abdomen: positive: Non-tender, No organomegaly, Nml bowel sounds, No distention Skin: positive: Warm, Dry Extremities: positive: Pedal edema (R>L, right foot 2+ edema) Neurologic/Psychiatric: positive: Weakness, Other (She is awake and alert. Oriented to name. Pleasant, able to respond appropriatley when asked simple questions and commands such sticking out her tongue. She is unable to squeeze her right hand today and her right arm remains flaccid. Can move right toes. Moves LUE independently.) - LABS Result Diagrams: 11/29/18 19:13 11/29/18 19:13 - DIAGNOSTIC IMAGING Diagnostic Imaging Results: Final report reviewed Diagnostic Imaging Results Comments: CT head non-contrast 11/29/2018: Moderate nonfocal diffuse white matter disease. 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 No acute hemorrhage or mass effect. - FOLLOW UP Follow Up: per Hospice provider - TIME SPENT Time Spent in Discharge (Minutes): 45"
[2018-12-01] MEDS: POLYETHYLENE GLYCOL 3350 17 GM PACKET PO SCH (12:14)
[2018-12-01] MEDS ORDERED: PRAMOXINE HCL RC SCH (14:00)
[2018-12-01] MEDS ORDERED: diltiaZEM CD 120 MG CAPSULE PO SCH (16:00)
[2018-12-01] MEDS ORDERED: ATORVASTATIN 10 MG TABLET PO SCH (21:00)
== END 2018-12-01 02:10 | disposition hospice, home (50) | DRG 65 ==
LOC: EDUNIT# → ED 18:37 → MS2 21:51
PROVIDERS: ADMIT Internal Medicine; ATTEND Nurse Practitioner
DX: I63.9 Cerebral infarction, unspecified (principal); G81.91 Hemiplegia, unspecified affecting right dominant side; R47.89 Other speech disturbances; C64.9 Malignant neoplasm of unspecified kidney, except renal pelvis; I69.951 Hemiplegia and hemiparesis following unspecified cerebrovascular disease affecting right dominant side; I10 Essential (primary) hypertension; R13.10 Dysphagia, unspecified; R47.1 Dysarthria and anarthria; Z79.2 Long term (current) use of antibiotics; Z86.73 Personal history of transient ischemic attack (TIA), and cerebral infarction without residual deficits; R47.81 Slurred speech; I48.2 Chronic atrial fibrillation; R29.715 NIHSS score 15; I11.0 Hypertensive heart disease with heart failure; I50.9 Heart failure, unspecified; E78.5 Hyperlipidemia, unspecified; R32 Unspecified urinary incontinence; M41.9 Scoliosis, unspecified; Z66 Do not resuscitate; Z90.49 Acquired absence of other specified parts of digestive tract; Z85.038 Personal history of other malignant neoplasm of large intestine
CPT/HCPCS: 36415; 70450; 80053; 82550; 82553; 83690; 84484; 85025; 85610; 92610; 93005; 97161; 97166; 97535; 99284; A6250; A9270

== ENCOUNTER 2018-12-01 14:22 | Outpatient (CLI) | payer MEDICARE, OTHER | END 2018-12-01 14:23 | disposition home or self-care (01) | LOC: EMS 14:22 | PROVIDERS: ATTEND Surgery | DX: Z51.5 Encounter for palliative care (principal) | CPT/HCPCS: A0425; A0428 ==